=== PATIENT | male | born 1965 | race Hispanic/Latino ===

== ENCOUNTER 2016-12-10 01:17 | Inpatient (IN) | payer MEDICAID ==
[2016-12-10 01:17] VITALS: BMI 24.2
--- NOTE | 2016-12-10 01:44 | C.PDOC ---
History Of Present Illness Patient presents to the ED complaining of depression. Patient states he has a plan to jump off of the roof. He has been depressed since his mother about 6 months ago. Patient denies homicidal ideation or any other complaints at this time. Time Seen by Provider: 12/10/16 01:44 Chief Complaint (Nursing): Psychiatric Evaluation History Per: Patient History/Exam Limitations: no limitations Onset/Duration Of Symptoms: Other (6 months) Current Symptoms Are (Timing): Still Present Suicide/Self Injury Attempted (Context): None Modifying Factor(s): None Severity: None Pain Scale Rating Of: 0 Associated Symptoms: Depression, Suicidal Thoughts Recent travel outside of the [place]: No Additional History Per: Patient Past Medical History Reviewed: Historical Data, Nursing Documentation, Vital Signs Vital Signs: Last Vital Signs Temp 98.3 F 12/10/16 01:30 Pulse 75 12/10/16 01:30 Resp 20 12/10/16 01:30 BP 173/146 H 12/10/16 01:30 Pulse Ox 100 12/10/16 02:06 - Medical History PMH: Depression, Gastritis, HTN Surgical History: Hernia Repair - [facility] Procedures DETOXIFICATION SERVICES FOR SUBSTANCE ABUSE TREATMENT (04/11/16) GROUP PSYCHOTHERAPY (04/11/16) INDIVIDUAL PSYCHOTHERAPY, SUPPORTIVE (04/11/16) MEDICATION MANAGEMENT (04/11/16) Family History: States: Unknown Family Hx - Social History Hx Tobacco Use: Yes Hx Alcohol Use: No Hx Substance Use: Yes - Immunization History Hx Tetanus Toxoid Vaccination: No Hx Influenza Vaccination: Yes Hx Pneumococcal Vaccination: Yes Review Of Systems Constitutional: Negative for: Fever ENT: Negative for: Throat Pain Cardiovascular: Negative for: Chest Pain Respiratory: Negative for: Shortness of Breath Gastrointestinal: Negative for: Nausea, Vomiting Genitourinary: Negative for: Dysuria Musculoskeletal: Negative for: Back Pain Skin: Negative for: Rash, Lesions Neurological: Negative for: Weakness Psych: Positive for: Depression, Suicidal ideation. Negative for: Other ( homicidal ideation) Physical Exam - Physical Exam Appears: Non-toxic Skin: Warm, Dry Head: Atraumatic, Normacephalic Neck: Supple Chest: Symmetrical Cardiovascular: Rhythm Regular Respiratory: No Rales, No Rhonchi, No Wheezing Extremity: Bilateral: Atraumatic Neurological/Psych: Oriented x3 ED Course And Treatment - Laboratory Results Result Diagrams: 12/10/16 01:48 06/08/17 01:48 O2 Sat by Pulse Oximetry: 100 (room air) Pulse Ox Interpretation: Normal Progress Note: Plan: Labs, Crisis Evaluation Disposition Discussed With DrKortney: Bryanna Santamaria Comment: accepted the pt on his service and took over the care at 3:06 AM Doctor Will See Patient In The: Hospital Counseled Patient/Family Regarding: Studies Performed, Diagnosis - Disposition Disposition: HOSPITALIZED Disposition Time: 01:44 Condition: FAIR - Clinical Impression Clinical Impression: Major depression, Substance abuse - Scribe Statement The provider has reviewed the documentation as recorded by the Scribe Rocio Mckoy Provider Attestation: All medical record entries made by the Scribe were at my direction and personally dictated by me. I have reviewed the chart and agree that the record accurately reflects my personal performance of the history, physical exam, medical decision making, and the department course for this patient. I have also personally directed, reviewed, and agree with the discharge instructions and disposition.
[2016-12-10 01:51] LABS: BASO # 0.1 K/uL (0.0-0.2); BASO % 0.6 % (0.0-2.0); EOS # 0.1 K/uL (0.0-0.7); EOS % 0.7 % (0.0-4.0); HEMATOCRIT 42.4 % (35.0-51.0); LYMPH # 2.1 K/uL (1.0-4.3); LYMPH % 20.8 % (20.0-40.0); MEAN CELL VOLUME 89.4 fL (80.0-94.0); MEAN CORPUSCULAR HEMOGLOBIN 30.8 pg (27.0-31.0); MEAN CORPUSCULAR HGB CONC 34.4 g/dL (33.0-37.0); MEAN PLATELET VOLUME 8.6 fL (7.2-11.7); MONO # 0.7 K/uL (0.0-0.8); MONO % 6.8 % (0.0-10.0); NRBC % 0.1 % (0.0-2.0); RED CELL DISTRIBUTION WIDTH 13.5 % (11.5-14.5); WHITE BLOOD COUNT 10.1 K/uL (4.8-10.8)
[2016-12-10 02:08] LABS: CHLORIDE 100 mmol/L (98-107); SODIUM 136 mmol/L (132-148)
[2016-12-10 02:09] LABS: POTASSIUM 3.8 mmol/L (3.6-5.2)
[2016-12-10 02:11] LABS: ALB/GLOB RATIO 1.5 (1.0-2.1); ALKALINE PHOSPHATASE 127 U/L (38-126); ALT/SGPT 50 U/L (21-72); AST/SGOT 26 U/L (17-59); BILIRUBIN,TOTAL 0.9 mg/dL (0.2-1.3); BLOOD UREA NITROGEN 19 mg/dL (9-20); CARBON DIOXIDE 23 mmol/L (22-30); GFR AFRICAN-AMERICAN > 60; GLUCOSE,RANDOM 85 mg/dL (75-110); TOTAL PROTEIN 7.4 g/dL (6.3-8.3)
[2016-12-10 02:12] LABS: ALCOHOL SERUM < 10 mg/dl (0-10); CALCIUM 9.2 mg/dl (8.6-10.4)
[2016-12-10 02:53] LABS: RBC URINE 1 /hpf (0-3); URINE BILIRUBIN NEGATIVE (NEGATIVE); URINE BLOOD NEGATIVE (NEGATIVE); URINE COLOR Yellow (YELLOW); URINE GLUCOSE (UA) NORMAL (Normal); URINE KETONE NEGATIVE (NEGATIVE); URINE LEUKOCYTE ESTERASE NEG Leu/uL (Negative); URINE PROTEIN NEGATIVE (NEGATIVE); URINE UROBILINOGEN NORMAL mg/dL (0.2-1.0); WBC URINE 2 /hpf (0-5)
[2016-12-10] MEDS ORDERED: Aluminum Hydroxide/Magnesium Hydroxide Susp (30 mL) ONE (03:04)
[2016-12-10] MEDS ORDERED: Aluminum Hydroxide/Magnesium Hydroxide Susp (30 mL) PO ONE (03:09)
[2016-12-10] MEDS ORDERED: guaiFENesin DM 200 mg-20 mg/10 ml UD PO PRN (08:35)
--- NOTE | 2016-12-10 10:31 | PCM.PSYCH ---
Initial Psychiatric Evaluation - Initial Psychiatric Evaluation Type of Admission: Voluntary Legal Status: Capacity Chief Complaint (in patient's own words): "I m feeling depressed and suicidal." History of Present Illness and Precipitating Events: Patient seen and evaluated, chart reviewed and discussed with the nurse. The patient is a 51yo male, who lives with his sister, came to the ED with depressed mood and suicidal ideation with a plan to jump off the roof of the building. Patient states that he was admitted at [facility] about 6 months ago for major depression. He was fine upon discharge and was following up 3 times a month with his psychiatrist Dr. Wallace at [facility]. He had been compliant with the medications Venlafaxine and Xanax which she prescribed him. He states that he last saw his psychiatrist last month but since then he started becoming increasingly depressed and yesterday contemplated suicide by going to the roof of a 20-story building but decided not to jump. He says that these feelings have been building up since his mother of cancer. He says that his younger and older brother also of cancer, his cousin was killed by a drunk cdl flatbed truck driver, and his father of a heart attack. He states that all of these deaths occurred in close proximity and he has been on a downward spiral ever since. He states, auditory hallucinations, that he hears his mothers voice calling him constantly but denies any visual hallucinations. He reports persecutory delusions that he cannot sleep and he feels like people are watching him. He reports feelings of hopelessness and helplessness and worthlessness. He reports poor sleep and poor appetite. He says that he smokes 10 bags of heroin a day and he last used heroin this past Wednesday. He started snorting heroin about 5 years ago and also smokes 3 joints of marijuana a day. He denies the use of cocaine and alcohol. He reports withdrawal symptoms including anxiety, abdominal cramps, nausea, joint pains, hot and cold sweats and headaches. The patient appears to have a depressed mood, is suspicious and slightly unkempt , and has a constricted affect. His speech is appropriate and organized. He appears to be social and interacts with the other patients. PMH HTN PSx H H/o 2 hernia repairs, h/o Shoulder surgery for pinched nerve Current Medications: Active Medications Generic Name Dose Route Start Last Admin Trade Name Freq PRN Reason Stop Dose Admin Clonidine HCl 0.1 mg 12/10/16 05:01 12/10/16 05:40 Catapres PO 0.1 mg Q6 PRN Administration Diastolic blood pressure Diphenhydramine HCl 50 mg 12/10/16 08:36 Benadryl PO Q6 PRN Extra Pyramidal Symptoms Guaifenesin/Dextromethorphan 10 ml 12/10/16 08:35 Robitussin Dm PO Q4H PRN Cough and congestion Loperamide HCl 2 mg 12/10/16 05:01 12/10/16 05:40 Imodium PO 2 mg Q6 PRN Administration Diarrhea Methadone HCl 0 mg 12/11/16 10:00 Methadone PO 12/15/16 09:59 .TAPER NOAH Taper Nicotine 1 patch 12/10/16 10:00 12/10/16 09:26 Nicoderm Cq TD 1 patch DAILY NOAH Administration Ondansetron HCl 4 mg 12/10/16 08:35 Zofran Tab PO Q8 PRN Nausea/Vomiting Pseudoephedrine HCl 60 mg 12/10/16 08:35 Sudafed Tab PO QID PRN Nasal/Sinus Congestion Trazodone HCl 50 mg 12/10/16 22:00 Desyrel PO HS NOAH Past Psychiatric History - Past Psychiatric History Previous Treatment History: Inpatient Pertinent Medical Hx (Current Medical&Sleep Prob, Allergies): Allergies Allergy/AdvReac Type Severity Reaction Status Date / Time No Known Allergies Allergy Verified 12/10/16 01:34 Gabapentin [Neurontin] 300 mg PO TID #90 cap 04/16/16 Metoprolol Tartrate [Lopressor] 100 mg PO BID #60 tab 04/16/16 hydroCHLOROthiazide [Microzide] 50 mg PO DAILY #30 tab 04/16/16 Review of Systems - Review of Systems All systems: reviewed and no additional remarkable complaints except - Psychiatric Psychiatric: Anxiety, Auditory Hallucinations, Depression, Difficulty Concentrating, Paranoia, Suicidal Ideation. absent: Visual Hallucinations Mental Status Examination - Personal Presentation Personal Presentation: Looks stated age - Affect Affect: Constricted, Depressed - Motor Activity Motor Activity: Calm - Reliability in Providing Information Reliability in Providing Information: Good - Speech Speech: Organized - Mood Mood: Depressed, Anxious - Formal Thought Process Formal Thought Process: Hallucinations, Delusions, Paranoia - Hallucinations/Delusions Hallucinations: Auditory Delusions: Persecution - Obsessions/Compulsions Obsessions: No Compulsions: No - Cognitive Functions Orientation: Person, Place, Situation, Time Sensorium: Alert Attention/Concentration: Attentive Abstract Thinking: Bryan Estimate of Intelligence: Below average Judgement: Imparied, as evidence by: Poor judgement, Imparied, as evidence by: Lack of insight into illness - Risk Risk: Suicidal, Withdrawal, Diminished functioning - Strength & Assets Inventory Strength & Assets Inventory: Family support (sister) DSM 5 DX - DSM 5 DSM 5 Diagnosis: Major depressive disorder recurrent severe with psychotic features Opioid Use Disorder-severe Opioid Withdrawal - Recommended/Plan of Treatment Treatment Recommendations and Plan of Treatment: Major depressive disorder recurrent severe with psychotic features CBT Psychoeducation Supportive therapy, group therapy, individual therapy Paxil 10 mg by mouth daily Neurontin 100 mg by mouth 3 times a day Trazodone 50 mg by mouth daily at bedtime Opioid use disorder severe CBT Psychoeducation Supportive therapy, individual therapy Use [place] for abstinence Opioid withdrawal CBT Psychoeducation Supportive therapy, individual therapy Clonidine when necessary Methadone taper Cannabis use disorder mild Monitor signs and symptoms Use [place] for abstinence HTN Monitor signs and symptoms H/o 2 hernia repairs, h/o Shoulder surgery for pinched nerve Monitor signs and symptoms - Smoking Cessation Smoking Cessation Initiated: No
--- NOTE | 2016-12-10 20:41 | CP.PCM.CON ---
<Danielle Osborn - Last Filed: 12/11/16 05:07> History of Present Illness - History of Present Illness History of Present Illness: Medicine Consult Note Reason for consult: L ear pain HPI: 51 year old white male PMHx of COPD, HTN, arrythmia presented to ER with depressed mood and suicidal ideation. Medicine was consulted regarding a left earache that has been intermittent for 1 year. Patient reports the pain became worse and constant in the last 3 days. He also reported that the day before he found some bugs in his ear. He described the pain as sharp 10/10 and radiating to his jaw. He also reported an associated headache and some pain with swallowing although he denied any clicks or the feeling of his jaw being stuck. He reported he has not been sick recently and denied any sick contacts. He reported not taking anything for the pain to make it better and denied any identifiable exacerbating factors. Patient denied fever, chills, headache, change in vision/hearing, chest pain, palpitations, SOB, cough, abdominal pain, nausea, vomiting, bowel/bladder complains, pain/swelling in his legs bilaterally. PMD: None PMHx: COPD, HTN, arrythmia, depression PSurgHx: hernia repair x 2 and shoulder surgery Family Hx: mother and two brothers of lung cancer SocHx: 1ppd for 40 years and uses heroin and marijuana ROS: denied fever, chills, headache, change in vision/hearing, chest pain, palpitations, SOB, cough, abdominal pain, nausea, vomiting, bowel/bladder complains, pain/swelling in his legs bilaterally. admitted headache, left ear, pain, jaw pain, sore throat Review of Systems - Constitutional Constitutional: As Per HPI. absent: Chills, Fever - EENT Eyes: As Per HPI. absent: Change in Vision Ears: As Per HPI, Ear Pain (left). absent: Decreased Hearing, Ear Discharge, Tinnitus, Abnormal Hearing, Dizziness Nose/Mouth/Throat: As Per HPI, Sore Throat. absent: Mouth Lesions Additional comments: jaw pain - Cardiovascular Cardiovascular: As Per HPI. absent: Chest Pain, Dyspnea, Edema - Respiratory Respiratory: As Per HPI. absent: Cough, Dyspnea on Exertion, Wheezing - Gastrointestinal Gastrointestinal: As Per HPI. absent: Abdominal Pain, Cramping, Diarrhea, Nausea, Vomiting - Musculoskeletal Musculoskeletal: As Per HPI. absent: Back Pain, Numbness, Tingling - Integumentary Integumentary: As Per HPI. absent: Rash - Neurological Neurological: As Per HPI. absent: Dizziness, Tingling, Weakness - Psychiatric Psychiatric: As Per HPI, Anxiety, Depression, Suicidal Ideation. absent: Homicidal Ideation - Endocrine Endocrine: As Per HPI. absent: Polydipsia, Polyphagia, Polyuria - Hematologic/Lymphatic Hematologic: As Per HPI. absent: Easy Bleeding, Easy Bruising, Lymphadenopathy Past Patient History - Infectious Disease Hx of Infectious Diseases: None - Past Medical History & Family History Past Medical History?: Yes - Past Social History Smoking Status: Heavy Smoker > 10 Cigarettes Daily - CARDIAC Hx Hypertension: Yes - PULMONARY Hx Respiratory Disorders: No Hx Tuberculosis: No - NEUROLOGICAL HX Cerebrovascular Accident: No Hx Seizures: No - HEENT Hx HEENT Problems: No - RENAL Hx Chronic Kidney Disease: No - ENDOCRINE/METABOLIC Hx Endocrine Disorders: No - HEMATOLOGICAL/ONCOLOGICAL Hx Blood Disorders: No Hx Cancer: No Hx Human Immunodeficiency Virus (HIV): No - INTEGUMENTARY Hx Dermatological Problems: No - MUSCULOSKELETAL/RHEUMATOLOGICAL Hx Musculoskeletal Disorders: No Hx Falls: No Other/Comment: pinched nerve left side of neck - GASTROINTESTINAL Hx Gastritis: Yes - GENITOURINARY/GYNECOLOGICAL Hx Genitourinary Disorders: No Hx Sexually Transmitted Disorders: No - PSYCHIATRIC Hx Substance Use: Yes - SURGICAL HISTORY Hx Surgeries: Yes (recent hernia surgery, hydrocele 10/16) Hx Herniorrhaphy: Yes Other/Comment: shoulder surgery - ANESTHESIA Hx Anesthesia: Yes Hx Anesthesia Reactions: Yes Hx Malignant Hyperthermia: No Meds Allergies/Adverse Reactions: Allergies Allergy/AdvReac Type Severity Reaction Status Date / Time No Known Allergies Allergy Verified 12/10/16 01:34 - Medications Medications: Current Medications Clonidine HCl (Catapres) 0.1 mg PO Q6 PRN PRN Reason: Diastolic blood pressure Last Admin: 12/10/16 05:40 Dose: 0.1 mg Diphenhydramine HCl (Benadryl) 50 mg PO Q6 PRN PRN Reason: Extra Pyramidal Symptoms Gabapentin (Neurontin) 100 mg PO TID NOAH Last Admin: 12/10/16 17:27 Dose: 100 mg Guaifenesin/Dextromethorphan (Robitussin Dm) 10 ml PO Q4H PRN PRN Reason: Cough and congestion Loperamide HCl (Imodium) 2 mg PO Q6 PRN PRN Reason: Diarrhea Last Admin: 12/10/16 05:40 Dose: 2 mg Methadone HCl (Methadone) 0 mg PO .TAPER NOAH PRN Reason: Taper Stop: 12/15/16 09:59 Nicotine (Nicoderm Cq) 1 patch TD DAILY [facility] Last Admin: 12/10/16 09:26 Dose: 1 patch Ondansetron HCl (Zofran Tab) 4 mg PO Q8 PRN PRN Reason: Nausea/Vomiting Paroxetine HCl (Paxil) 10 mg PO DAILY [facility] Pseudoephedrine HCl (Sudafed Tab) 60 mg PO QID PRN PRN Reason: Nasal/Sinus Congestion Trazodone HCl (Desyrel) 50 mg PO HS [facility] Physical Exam - Constitutional Appears: Well, Toxic - Head Exam Head Exam: ATRAUMATIC, NORMAL INSPECTION, NORMOCEPHALIC - Eye Exam Eye Exam: EOMI, Normal appearance, PERRL. absent: Conjunctival injection, Scleral icterus Pupil Exam: NORMAL ACCOMODATION - ENT Exam ENT Exam: Mucous Membranes Moist - Neck Exam Neck exam: Positive for: Full Rom, Normal Inspection. Negative for: Lymphadenopathy, Tenderness - Respiratory Exam Respiratory Exam: Clear to Auscultation Bilateral, NORMAL BREATHING PATTERN. absent: Accessory Muscle Use, Rales, Rhonchi, Wheezes, Respiratory Distress - Cardiovascular Exam Cardiovascular Exam: REGULAR RHYTHM, RRR, +S1, +S2 - GI/Abdominal Exam GI & Abdominal Exam: Normal Bowel Sounds, Soft. absent: Firm, Guarding, Hernia , Rigid, Tenderness - Rectal Exam Rectal Exam: Deferred - Extremities Exam Extremities exam: Positive for: normal capillary refill, normal inspection, pedal pulses present. Negative for: pedal edema, tenderness - Back Exam Back exam: NORMAL INSPECTION. absent: rash noted, tenderness - Neurological Exam Neurological exam: Alert, Oriented x3 - Psychiatric Exam Psychiatric exam: Anxious, Depressed - Skin Skin Exam: Dry, Intact, Normal Color, Warm Results - Vital Signs Recent Vital Signs: Last Vital Signs Temp 97.8 F 12/10/16 06:53 Pulse 103 H 12/10/16 16:13 Resp 18 12/10/16 06:53 BP 132/80 12/10/16 16:13 Pulse Ox 97 12/10/16 04:06 - Labs Result Diagrams: 12/10/16 01:48 12/10/16 01:48 Assessment & Plan - Assessment and Plan (Free Text) Assessment: 51 year old white male PMHx of COPD, HTN, arrythmia presented to ER with depressed mood and suicidal ideation. Medicine was consulted regarding a left earache that has been intermittent for 1 year. Plan: Left ear pain -Ofloxacin otic 0.3% BID AU -Motrin 400mg po q6 prn for pain -f/u AM labs Depression and Suicidal ideations -Managed as per psych Hx of HTN -continued home medications: Metoprolol tartate 100mg po bid HCTZ 50mg po daily -f/u lipid panel and HgbA1c -Monitor BP Hx of COPD -no acute complaints -Duoneb 3ml inh q6 prn SOB PPX -Pepcid 20mg po daily -Heparin 5000U SC Q12 -No need for SCDs as patient ambulates around [place] -Heart healthy diet Plan discussed with Dr. Kinjal Osborn PGY1 <Hitesh Layton - Last Filed: 12/11/16 05:55> Meds - Medications Medications: Current Medications Albuterol/Ipratropium (Duoneb 3 Mg/0.5 Mg (3 Ml) Ud) 3 ml INH RQ6 PRN PRN Reason: Shortness of Breath Clonidine HCl (Catapres) 0.1 mg PO Q6 PRN PRN Reason: Diastolic blood pressure Last Admin: 12/10/16 05:40 Dose: 0.1 mg Diphenhydramine HCl (Benadryl) 50 mg PO Q6 PRN PRN Reason: Extra Pyramidal Symptoms Famotidine (Pepcid) 20 mg PO BID NOAH Gabapentin (Neurontin) 100 mg PO TID NOAH Last Admin: 12/10/16 17:27 Dose: 100 mg Guaifenesin/Dextromethorphan (Robitussin Dm) 10 ml PO Q4H PRN PRN Reason: Cough and congestion Heparin Sodium (Porcine) (Heparin) 5,000 units SC Q12 NOAH Hydrochlorothiazide (Microzide) 50 mg PO DAILY NOAH Ibuprofen (Motrin Tab) 400 mg PO Q6H PRN PRN Reason: Pain, moderate (4-7) Loperamide HCl (Imodium) 2 mg PO Q6 PRN PRN Reason: Diarrhea Last Admin: 12/10/16 05:40 Dose: 2 mg Methadone HCl (Methadone) 0 mg PO .TAPER NOAH PRN Reason: Taper Stop: 12/15/16 09:59 Metoprolol Tartrate (Lopressor) 100 mg PO BID [facility] Nicotine (Nicoderm Cq) 1 patch TD DAILY [facility] Last Admin: 12/10/16 09:26 Dose: 1 patch Ofloxacin (Floxin 0.3% Otic Soln) 0 ml AU BID NOAH Ondansetron HCl (Zofran Tab) 4 mg PO Q8 PRN PRN Reason: Nausea/Vomiting Paroxetine HCl (Paxil) 10 mg PO DAILY NOAH Pseudoephedrine HCl (Sudafed Tab) 60 mg PO QID PRN PRN Reason: Nasal/Sinus Congestion Trazodone HCl (Desyrel) 50 mg PO HS [facility] Last Admin: 12/10/16 22:08 Dose: Not Given Results - Vital Signs Recent Vital Signs: Last Vital Signs Temp 97.8 F 12/10/16 06:53 Pulse 103 H 12/10/16 16:13 Resp 18 12/10/16 06:53 BP 132/80 12/10/16 16:13 Pulse Ox 97 12/10/16 04:06 - Labs Result Diagrams: 12/10/16 01:48 12/10/16 01:48 Assessment & Plan - Date & Time Date: 12/11/16 (I have seen and examined the patient. I agree with the findings and plan of care as documented by Dr. Osborn. Patient with left ear pain. Oflaxin ear drops. Motrin prn. Also with history of hypertension. Continue home meds. Monitor for acute changes.) Time: 05:54 Attending/Attestation - Attestation I have personally seen and examined this patient.: Yes I have fully participated in the care of the patient.: Yes I have reviewed all pertinent clinical information: Yes
[2016-12-11] MEDS ORDERED: Albuterol-Ipratrop 3 mg / 0.5 (3 ml) UD INH PRN (05:11)
--- NOTE | 2016-12-11 07:25 | CP.PCM.PN ---
Subjective - Date & Time of Evaluation Date of Evaluation: 12/11/16 Time of Evaluation: 08:55 - Subjective Subjective: PGY 1 Medicine Note- Dr. Mcclain's service Patient seen and examined in no acute distress. Patient states that his left ear hurts. He states that he likely has so much wax buildup that may have contributed to this. Patient admits to not having much of an appetite. Patient denies subjective fevers or chills, nausea, headaches, dizziness, lightheadedness at this time. Objective - Vital Signs/Intake and Output Vital Signs (last 24 hours): Temp Pulse Resp BP Pulse Ox 97.5 F L 94 H 20 120/87 97 12/11/16 07:09 12/11/16 07:09 12/11/16 07:09 12/11/16 07:09 12/10/16 04:06 - Medications Medications: Current Medications Albuterol/Ipratropium (Duoneb 3 Mg/0.5 Mg (3 Ml) Ud) 3 ml INH RQ6 PRN PRN Reason: Shortness of Breath Clonidine HCl (Catapres) 0.1 mg PO Q6 PRN PRN Reason: Diastolic blood pressure Last Admin: 12/10/16 05:40 Dose: 0.1 mg Diphenhydramine HCl (Benadryl) 50 mg PO Q6 PRN PRN Reason: Extra Pyramidal Symptoms Famotidine (Pepcid) 20 mg PO BID [facility] Gabapentin (Neurontin) 100 mg PO TID [facility] Last Admin: 12/10/16 17:27 Dose: 100 mg Guaifenesin/Dextromethorphan (Robitussin Dm) 10 ml PO Q4H PRN PRN Reason: Cough and congestion Hydrochlorothiazide (Microzide) 50 mg PO DAILY [facility] Ibuprofen (Motrin Tab) 400 mg PO Q6H PRN PRN Reason: Pain, moderate (4-7) Loperamide HCl (Imodium) 2 mg PO Q6 PRN PRN Reason: Diarrhea Last Admin: 12/10/16 05:40 Dose: 2 mg Methadone HCl (Methadone) 0 mg PO .TAPER NOAH PRN Reason: Taper Stop: 12/15/16 09:59 Metoprolol Tartrate (Lopressor) 100 mg PO BID [facility] Nicotine (Nicoderm Cq) 1 patch TD DAILY [facility] Last Admin: 12/10/16 09:26 Dose: 1 patch Ofloxacin (Floxin 0.3% Otic Soln) 0 ml AU BID [facility] Ondansetron HCl (Zofran Tab) 4 mg PO Q8 PRN PRN Reason: Nausea/Vomiting Paroxetine HCl (Paxil) 10 mg PO DAILY [facility] Pseudoephedrine HCl (Sudafed Tab) 60 mg PO QID PRN PRN Reason: Nasal/Sinus Congestion Trazodone HCl (Desyrel) 50 mg PO HS [facility] Last Admin: 12/10/16 22:08 Dose: Not Given - Constitutional Appears: Non-toxic, No Acute Distress - Head Exam Head Exam: ATRAUMATIC, NORMAL INSPECTION, NORMOCEPHALIC - Eye Exam Eye Exam: EOMI, Normal appearance, PERRL Pupil Exam: NORMAL ACCOMODATION, PERRL - ENT Exam ENT Exam: Mucous Membranes Moist - Neck Exam Neck Exam: Full ROM - Respiratory Exam Respiratory Exam: NORMAL BREATHING PATTERN. absent: Wheezes - Cardiovascular Exam Cardiovascular Exam: +S1, +S2 - GI/Abdominal Exam GI & Abdominal Exam: Soft, Normal Bowel Sounds - Extremities Exam Extremities Exam: Full ROM, Normal Capillary Refill - Back Exam Back Exam: Full ROM - Neurological Exam Neurological Exam: Alert, Awake, Normal Gait, Oriented x3 - Psychiatric Exam Psychiatric exam: Normal Affect, Normal Mood - Skin Skin Exam: Normal Color, Warm Assessment and Plan - Assessment and Plan (Free Text) Assessment: Left ear pain -Ofloxacin otic 0.3% BID AU -Motrin 400mg po q6 prn for pain -f/u AM labs Depression and Suicidal ideations -Managed as per psych Hx of HTN -continued home medications: Metoprolol tartate 100mg po bid HCTZ 50mg po daily -Lipid panel ( LDL elevated, HDL decreased) and HgbA1c 5.1 -Monitor BP Hx of COPD -no acute complaints -Duoneb 3ml inh q6 prn SOB -Smoking cessation encouraged PPX -Pepcid 20mg po daily -Ambulates -Heart healthy diet Patient is medically stable at this time with recommendations given. Medicine Team signing off. Please re-consult if necessary.
[2016-12-11 08:32] LABS: BASO # 0.1 K/uL (0.0-0.2); BASO % 0.9 % (0.0-2.0); EOS # 0.1 K/uL (0.0-0.7); EOS % 1.5 % (0.0-4.0); HEMATOCRIT 43.9 % (35.0-51.0); LYMPH # 2.1 K/uL (1.0-4.3); LYMPH % 24.9 % (20.0-40.0); MEAN CELL VOLUME 90.5 fL (80.0-94.0); MEAN CORPUSCULAR HEMOGLOBIN 30.9 pg (27.0-31.0); MEAN CORPUSCULAR HGB CONC 34.2 g/dL (33.0-37.0); MEAN PLATELET VOLUME 8.9 fL (7.2-11.7); MONO # 0.6 K/uL (0.0-0.8); MONO % 6.7 % (0.0-10.0); RED CELL DISTRIBUTION WIDTH 13.9 % (11.5-14.5); WHITE BLOOD COUNT 8.6 K/uL (4.8-10.8)
[2016-12-11 08:42] LABS: CHLORIDE 100 mmol/L (98-107)
[2016-12-11 08:43] LABS: POTASSIUM 4.5 mmol/L (3.6-5.2); SODIUM 137 mmol/L (132-148)
[2016-12-11 08:45] LABS: ALB/GLOB RATIO 1.6 (1.0-2.1); ALKALINE PHOSPHATASE 116 U/L (38-126); AST/SGOT 24 U/L (17-59); BILIRUBIN,TOTAL 0.8 mg/dL (0.2-1.3); BLOOD UREA NITROGEN 19 mg/dL (9-20); CARBON DIOXIDE 24 mmol/L (22-30); GFR AFRICAN-AMERICAN > 60; GLUCOSE,RANDOM 90 mg/dL (75-110); PHOSPHOROUS 2.9 mg/dL (2.5-4.5); TOTAL PROTEIN 7.6 g/dL (6.3-8.3)
[2016-12-11 08:46] LABS: ALT/SGPT 41 U/L (21-72); CALCIUM 9.1 mg/dl (8.6-10.4); MAGNESIUM 1.8 mg/dL (1.6-2.3)
[2016-12-11 10:20] LABS: CHOLESTEROL 169 mg/dL (0-199)
[2016-12-11] MEDS: Ofloxacin 0.3% Otic Soln AU SCH ×2 (10:41→17:34)
--- NOTE | 2016-12-11 11:42 | PCM.PYCHPN ---
Psychiatric Progress Note - Psychiatric Progress Note Patient seen today, length of contact: 16 min Patient Chief Complaint: "I m feeling depressed and suicidal." Problems Identified/Issues Discussed: Patient seen and evaluated, chart reviewed and discussed with the nurse. As per the staff, patient still appears isolated, depressed and withdrawn. Patient still reports depressed mood and reports at times feelings of hopelessness or helplessness. He reports withdrawal symptoms including abdominal cramps, back pain, anxiety and sweating. He reports somewhat improvement in his paranoia. He is taking medications and denies any side effects. Patient was seen by the medical because of the year pain. Supportive therapy and psychoeducation were given. Medication Change: Yes (methadone taper) Medical Record Reviewed: Yes Mental Status Examination - Cognitive Function Orientation: Person, Place, Situation, Time Memory: Intact Attention: WNL Concentration: Poor Association: WNL Fund of Knowledge: Poor - Mood Mood: Depressed, Anxious - Affect Affect: Constricted, Depressed - Formal Thought Process Formal Thought Process: Hallucinations, Delusions, Paranoia - Suicidal Ideation Suicidal Ideation: No - Homicidal Ideation Homicidal Ideation: No Goal/Treatment Plan - Goal/Treatment Plan Need for Continued Stay: Discharge may exacerbated symptoms, Severe functional impairment Progress Toward Problem(s) and Goals/Treatment Plan: Major depressive disorder recurrent severe with psychotic features CBT Psychoeducation Supportive therapy, group therapy, individual therapy Paxil 10 mg by mouth daily Neurontin 100 mg by mouth 3 times a day Trazodone 50 mg by mouth daily at bedtime Opioid use disorder severe CBT Psychoeducation Supportive therapy, individual therapy Use [place] for abstinence Opioid withdrawal CBT Psychoeducation Supportive therapy, individual therapy Clonidine when necessary Methadone taper Cannabis use disorder mild Monitor signs and symptoms Use [place] for abstinence HTN Monitor signs and symptoms H/o 2 hernia repairs, h/o Shoulder surgery for pinched nerve Monitor signs and symptoms - Smoking Cessation Smoking Cessation Initiated: No
[2016-12-12 07:19] VITALS: O2SAT 99
--- NOTE | 2016-12-12 09:52 | PCM.PYCHPN ---
Psychiatric Progress Note - Psychiatric Progress Note Patient seen today, length of contact: 16 min Patient Chief Complaint: "I m feeling depressed and suicidal." Problems Identified/Issues Discussed: Patient seen and evaluated, chart reviewed and discussed with the nurse. As per the staff, patient still appears isolated, depressed and withdrawn. Patient still reports depressed mood and reports at times feelings of hopelessness or helplessness. He reports withdrawal symptoms including abdominal cramps, back pain, anxiety and sweating. He reports somewhat improvement in his paranoia. He is taking medications and denies any side effects. Patient was seen by the medical because of the year pain. Supportive therapy and psychoeducation were given. Medication Change: Yes (methadone taper) Medical Record Reviewed: Yes Mental Status Examination - Cognitive Function Orientation: Person, Place, Situation, Time Memory: Intact Attention: WNL Concentration: Poor Association: WNL Fund of Knowledge: Poor - Mood Mood: Depressed, Anxious - Affect Affect: Constricted, Depressed - Formal Thought Process Formal Thought Process: Hallucinations, Delusions, Paranoia - Suicidal Ideation Suicidal Ideation: No - Homicidal Ideation Homicidal Ideation: No Goal/Treatment Plan - Goal/Treatment Plan Need for Continued Stay: Discharge may exacerbated symptoms, Severe functional impairment Progress Toward Problem(s) and Goals/Treatment Plan: Major depressive disorder recurrent severe with psychotic features CBT Psychoeducation Supportive therapy, group therapy, individual therapy Paxil 10 mg by mouth daily Neurontin 100 mg by mouth 3 times a day Trazodone 50 mg by mouth daily at bedtime Opioid use disorder severe CBT Psychoeducation Supportive therapy, individual therapy Use [place] for abstinence Opioid withdrawal CBT Psychoeducation Supportive therapy, individual therapy Clonidine when necessary Methadone taper Cannabis use disorder mild Monitor signs and symptoms Use [place] for abstinence HTN Monitor signs and symptoms H/o 2 hernia repairs, h/o Shoulder surgery for pinched nerve Monitor signs and symptoms
[2016-12-12] MEDS: Ofloxacin 0.3% Otic Soln AU SCH ×3 (11:20→22:31)
[2016-12-13] MEDS: Ofloxacin 0.3% Otic Soln AU SCH ×2 (09:37→17:35)
--- NOTE | 2016-12-13 12:26 | PCM.PYCHPN ---
Psychiatric Progress Note - Psychiatric Progress Note Patient seen today, length of contact: 16 min Patient Chief Complaint: "I m feeling depressed and suicidal." Problems Identified/Issues Discussed: Patient seen and evaluated, chart reviewed and discussed with the nurse. As per the staff, patient still appears isolated, depressed and withdrawn. Patient still reports depressed mood and reports at times feelings of hopelessness or helplessness. He reports withdrawal symptoms including abdominal cramps, back pain, anxiety and sweating. He reports somewhat improvement in his paranoia. He is taking medications and denies any side effects. Patient was seen by the medical because of the year pain. Supportive therapy and psychoeducation were given. Medication Change: Yes (methadone taper) Medical Record Reviewed: Yes Mental Status Examination - Cognitive Function Orientation: Person, Place, Situation, Time Memory: Intact Attention: WNL Concentration: Poor Association: WNL Fund of Knowledge: Poor - Mood Mood: Depressed, Anxious - Affect Affect: Constricted, Depressed - Formal Thought Process Formal Thought Process: Hallucinations, Delusions, Paranoia - Suicidal Ideation Suicidal Ideation: No - Homicidal Ideation Homicidal Ideation: No Goal/Treatment Plan - Goal/Treatment Plan Need for Continued Stay: Discharge may exacerbated symptoms, Severe functional impairment Progress Toward Problem(s) and Goals/Treatment Plan: Major depressive disorder recurrent severe with psychotic features CBT Psychoeducation Supportive therapy, group therapy, individual therapy Paxil 10 mg by mouth daily Neurontin 100 mg by mouth 3 times a day Trazodone 50 mg by mouth daily at bedtime Opioid use disorder severe CBT Psychoeducation Supportive therapy, individual therapy Use [place] for abstinence Opioid withdrawal CBT Psychoeducation Supportive therapy, individual therapy Clonidine when necessary Methadone taper Cannabis use disorder mild Monitor signs and symptoms Use [place] for abstinence HTN Monitor signs and symptoms H/o 2 hernia repairs, h/o Shoulder surgery for pinched nerve Monitor signs and symptoms
[2016-12-14] MEDS: Ofloxacin 0.3% Otic Soln AU SCH ×2 (10:27→17:16)
--- NOTE | 2016-12-14 12:54 | PCM.PYCHPN ---
Psychiatric Progress Note - Psychiatric Progress Note Patient seen today, length of contact: 16 min Patient Chief Complaint: "I m feeling depressed and suicidal." Problems Identified/Issues Discussed: Patient seen and evaluated, chart reviewed and discussed with the nurse. As per the staff, patient still appears isolated, depressed and withdrawn. Patient still reports depressed mood and reports at times feelings of hopelessness or helplessness. He reports withdrawal symptoms including abdominal cramps, back pain, anxiety and sweating. He reports somewhat improvement in his paranoia. He is taking medications and denies any side effects. Patient was seen by the medical because of the year pain. Supportive therapy and psychoeducation were given. Medication Change: Yes (methadone taper) Medical Record Reviewed: Yes Mental Status Examination - Cognitive Function Orientation: Person, Place, Situation, Time Memory: Intact Attention: WNL Concentration: Poor Association: WNL Fund of Knowledge: Poor - Mood Mood: Depressed, Anxious - Affect Affect: Constricted, Depressed - Formal Thought Process Formal Thought Process: Hallucinations, Delusions, Paranoia - Suicidal Ideation Suicidal Ideation: No - Homicidal Ideation Homicidal Ideation: No Goal/Treatment Plan - Goal/Treatment Plan Need for Continued Stay: Discharge may exacerbated symptoms, Severe functional impairment Progress Toward Problem(s) and Goals/Treatment Plan: Major depressive disorder recurrent severe with psychotic features CBT Psychoeducation Supportive therapy, group therapy, individual therapy Paxil 10 mg by mouth daily Neurontin 100 mg by mouth 3 times a day Trazodone 50 mg by mouth daily at bedtime Opioid use disorder severe CBT Psychoeducation Supportive therapy, individual therapy Use [place] for abstinence Opioid withdrawal CBT Psychoeducation Supportive therapy, individual therapy Clonidine when necessary Methadone taper Cannabis use disorder mild Monitor signs and symptoms Use [place] for abstinence HTN Monitor signs and symptoms H/o 2 hernia repairs, h/o Shoulder surgery for pinched nerve Monitor signs and symptoms
[2016-12-15] MEDS: Ofloxacin 0.3% Otic Soln AU SCH ×2 (09:41→18:49)
--- NOTE | 2016-12-15 14:38 | PCM.PYCHPN ---
Psychiatric Progress Note - Psychiatric Progress Note Patient seen today, length of contact: 16 min Patient Chief Complaint: "I m feeling depressed and suicidal." Problems Identified/Issues Discussed: Patient seen and evaluated, chart reviewed and discussed with the nurse. As per the staff, patient still appears isolated, depressed and withdrawn. Patient still reports depressed mood and reports at times feelings of hopelessness or helplessness. He reports withdrawal symptoms including abdominal cramps, back pain, anxiety and sweating. He reports somewhat improvement in his paranoia. He is taking medications and denies any side effects. Patient was seen by the medical because of the year pain. Supportive therapy and psychoeducation were given. Medication Change: Yes (methadone taper, increase paxil) Medical Record Reviewed: Yes Mental Status Examination - Cognitive Function Orientation: Person, Place, Situation, Time Memory: Intact Attention: WNL Concentration: Poor Association: WNL Fund of Knowledge: Poor - Mood Mood: Depressed, Anxious - Affect Affect: Constricted, Depressed - Formal Thought Process Formal Thought Process: Hallucinations, Delusions, Paranoia - Suicidal Ideation Suicidal Ideation: No - Homicidal Ideation Homicidal Ideation: No Goal/Treatment Plan - Goal/Treatment Plan Need for Continued Stay: Discharge may exacerbated symptoms, Severe functional impairment Progress Toward Problem(s) and Goals/Treatment Plan: Major depressive disorder recurrent severe with psychotic features CBT Psychoeducation Supportive therapy, group therapy, individual therapy Paxil 10 mg by mouth daily Neurontin 100 mg by mouth 3 times a day Trazodone 50 mg by mouth daily at bedtime Opioid use disorder severe CBT Psychoeducation Supportive therapy, individual therapy Use [place] for abstinence Opioid withdrawal CBT Psychoeducation Supportive therapy, individual therapy Clonidine when necessary Methadone taper Cannabis use disorder mild Monitor signs and symptoms Use [place] for abstinence HTN Monitor signs and symptoms H/o 2 hernia repairs, h/o Shoulder surgery for pinched nerve Monitor signs and symptoms
[2016-12-16] MEDS: Ofloxacin 0.3% Otic Soln AU SCH ×2 (10:38→21:30)
--- NOTE | 2016-12-16 15:33 | PCM.PYCHPN ---
Psychiatric Progress Note - Psychiatric Progress Note Patient seen today, length of contact: 16 min Patient Chief Complaint: "I m feeling depressed and suicidal." Problems Identified/Issues Discussed: Patient seen and evaluated, chart reviewed and discussed with the nurse. As per the staff, patient still appears isolated, depressed and withdrawn. Patient still reports depressed mood and reports at times feelings of hopelessness or helplessness. He reports withdrawal symptoms including abdominal cramps, back pain, anxiety and sweating. He reports somewhat improvement in his paranoia. He is taking medications and denies any side effects. Patient was seen by the medical because of the year pain. Supportive therapy and psychoeducation were given. Medication Change: Yes (methadone taper, increase paxil) Medical Record Reviewed: Yes Mental Status Examination - Cognitive Function Orientation: Person, Place, Situation, Time Memory: Intact Attention: WNL Concentration: Poor Association: WNL Fund of Knowledge: Poor - Mood Mood: Depressed, Anxious - Affect Affect: Constricted, Depressed - Formal Thought Process Formal Thought Process: Hallucinations, Delusions, Paranoia - Suicidal Ideation Suicidal Ideation: No - Homicidal Ideation Homicidal Ideation: No Goal/Treatment Plan - Goal/Treatment Plan Need for Continued Stay: Discharge may exacerbated symptoms, Severe functional impairment Progress Toward Problem(s) and Goals/Treatment Plan: Major depressive disorder recurrent severe with psychotic features CBT Psychoeducation Supportive therapy, group therapy, individual therapy Paxil 10 mg by mouth daily Neurontin 100 mg by mouth 3 times a day Trazodone 50 mg by mouth daily at bedtime Opioid use disorder severe CBT Psychoeducation Supportive therapy, individual therapy Use [place] for abstinence Opioid withdrawal CBT Psychoeducation Supportive therapy, individual therapy Clonidine when necessary Methadone taper Cannabis use disorder mild Monitor signs and symptoms Use [place] for abstinence HTN Monitor signs and symptoms H/o 2 hernia repairs, h/o Shoulder surgery for pinched nerve Monitor signs and symptoms
[2016-12-17 07:31] VITALS: BP 98/67; PULSE 65; RESP 19; TEMP 97.3
--- NOTE | 2016-12-17 09:41 | PCM.PYCHDC ---
Mental Status Examination - Mental Status Examination Orientation: Person, Place, Situation, Time Memory: Intact Mood: Neutral Affect: Constricted Speech: Soft Attention: WNL Concentration: WNL Association: WNL Fund of Knowledge: WNL Formal Thought Process: No Impairment Description of patient's judgement and insight: good, fair Psychotic Thoughts and Behaviors: denies any AVH Suicidal Ideation: No Current Homicidal Ideation?: No Discharge Summary - Discharge Note Reason for Hospitalization: Patient seen and evaluated, chart reviewed and discussed with the nurse. The patient is a 51yo male, who lives with his sister, came to the ED with depressed mood and suicidal ideation with a plan to jump off the roof of the building. Patient states that he was admitted at [facility] about 6 months ago for major depression. He was fine upon discharge and was following up 3 times a month with his psychiatrist Dr. Wallace at [place] [facility]. He had been compliant with the medications Venlafaxine and Xanax which she prescribed him. He states that he last saw his psychiatrist last month but since then he started becoming increasingly depressed and yesterday contemplated suicide by going to the roof of a 20-story building but decided not to jump. He says that these feelings have been building up since his mother of cancer. He says that his younger and older brother also of cancer, his cousin was killed by a drunk oil transport driver, and his father of a heart attack. He states that all of these deaths occurred in close proximity and he has been on a downward spiral ever since. He states, auditory hallucinations, that he hears his mothers voice calling him constantly but denies any visual hallucinations. He reports persecutory delusions that he cannot sleep and he feels like people are watching him. He reports feelings of hopelessness and helplessness and worthlessness. He reports poor sleep and poor appetite. He says that he smokes 10 bags of heroin a day and he last used heroin this past Wednesday. He started snorting heroin about 5 years ago and also smokes 3 joints of marijuana a day. He denies the use of cocaine and alcohol. He reports withdrawal symptoms including anxiety, abdominal cramps, nausea, joint pains, hot and cold sweats and headaches. The patient appears to have a depressed mood, is suspicious and slightly unkempt , and has a constricted affect. His speech is appropriate and organized. He appears to be social and interacts with the other patients. Consultations:: List each consultation separately and include: 1. Reason for request. 2. Findings. 3. Follow-up Summary of Hospital Course include:: 1. Description of specific treatment plan utilized for patients during their course of treatmen. 2. Summarize the time- course for resolution of acute symptoms and/or regressed behaviors. 3. Describe issues identified and worked on during hospitalization. 4. Describe medication utilized. 5. Describe medical problems identified and treated. 6. Reassessment of suicide risk Summary of Hospital Course: During the course of his stay, patient (pt) started progressively improving and he no longer remained irritable, depressed, and suicidal. His mood was improved and he started attending groups and meetings and started socializing. Patient denied any feelings of hopelessness, helplessness, and worthlessness, denied any problem with the sleep or appetite, denied suicidal ideation or homicidal ideation. Pt denied any auditory or visual hallucinations. Some changes were made in his current medications and patient was discharged on following medications. He tolerated these medications very well and denied any side effects. - Final Diagnosis (DSM 5) Condition upon Discharge: FAIR DSM 5: Major depressive disorder recurrent severe with psychotic features Opioid use disorder severe Opioid withdrawal Cannabis use disorder mild Disposition: HOME/ ROUTINE Follow-up Treatment Plan: Education: Pt was educated and counseled about the risks and benefits of taking and not taking medications. Pt was educated and counseled about the risks of drinking and abusing drugs. Pt was educated and counseled to go to the ER or call 911 if pt develop suicidal ideation or homicidal ideation, worsening of symptoms or severe side effects of the meds. Prescriptions/Medication Reconciliation: Gabapentin [Neurontin] 100 mg PO BID #60 cap PARoxetine [Paxil] 20 mg PO DAILY #30 tab traZODone [Desyrel] 100 mg PO HS #30 tab - Smoking Cessation Smoking Cessation Medication prescribed: No - Antipsychotic Medications Pt discharged on 2 or more routine antipsychotic medications: No
== END 2016-12-17 12:15 | disposition home or self-care (01) | DRG 430 ==
LOC: C.ER 01:17 → C.5E 03:08
PROVIDERS: ADMIT Psychiatry & Neurology Psychiatry; ATTEND Psychiatry & Neurology Psychiatry
PROC: GZHZZZZ Group Psychotherapy (ICD-10-PCS; principal; 2016-12-10)
PROC: GZ56ZZZ Individual Psychotherapy, Supportive (ICD-10-PCS; 2016-12-10)
PROC: HZ2ZZZZ Detoxification Services for Substance Abuse Treatment (ICD-10-PCS; 2016-12-10)
PROC: HZ81ZZZ Medication Management for Substance Abuse Treatment, Methadone Maintenance (ICD-10-PCS; 2016-12-10)
DX: F33.3 Major depressive disorder, recurrent, severe with psychotic symptoms (principal); R45.851 Suicidal ideations; I10 Essential (primary) hypertension; F11.23 Opioid dependence with withdrawal; J44.9 Chronic obstructive pulmonary disease, unspecified; F12.90 Cannabis use, unspecified, uncomplicated; F17.200 Nicotine dependence, unspecified, uncomplicated; F41.9 Anxiety disorder, unspecified; Z80.1 Family history of malignant neoplasm of trachea, bronchus and lung; Z82.49 Family history of ischemic heart disease and other diseases of the circulatory system

== ENCOUNTER 2016-12-23 16:52 | Emergency (ER) | payer MEDICAID ==
[2016-12-23 16:53] VITALS: BMI 24.2
--- NOTE | 2016-12-23 17:13 | C.PDOC ---
History Of Present Illness <Salud Perez - Last Filed: 12/23/16 18:48> <Myesha Mckeon - Last Filed: 12/23/16 22:27> 51 yr old male presents to the ER with complaints of feeling depressed and suicidal. Patient reports he planned to jump off a roof today. Patient denies homicidal ideation, hallucinations, weakness or numbness. (Salud Perez) Patient is accepted for psychiatric admission at [facility] but he is refusing. He states that "they won't treat my substance issues". He is given referral for [facility] but is irate and claims he will not follow up. Patient in in no physical distress and is angry and requesting transportation home. He is threatening to [facility] the hospital. (Myesha Mckeon) History Per: Patient History/Exam Limitations: no limitations Onset/Duration Of Symptoms: Persistent Current Symptoms Are (Timing): Still Present Severity: Mild Recent travel outside of the [place]: No <Salud Perez - Last Filed: 12/23/16 18:48> <Myesha Mckeon - Last Filed: 12/23/16 22:27> Time Seen by Provider: 12/23/16 16:58 Past Medical History Reviewed: Historical Data, Nursing Documentation, Vital Signs - Medical History PMH: Depression, Gastritis, HTN Surgical History: Hernia Repair Family History: States: No Known Family Hx - Social History Hx Tobacco Use: Yes Hx Alcohol Use: No Hx Substance Use: Yes - Immunization History Hx Tetanus Toxoid Vaccination: No Hx Influenza Vaccination: Yes Hx Pneumococcal Vaccination: Yes <Salud Perez - Last Filed: 12/23/16 18:48> Review Of Systems Except As Marked, All Systems Reviewed And Found Negative. Neurological: Negative for: Weakness, Numbness Psych: Positive for: Depression, Suicidal ideation, Other (No homicidal ideations. No plan. ) <Salud Perez - Last Filed: 12/23/16 18:48> Physical Exam - Physical Exam Appears: Non-toxic, No Acute Distress Skin: Warm, Dry, No Rash Head: Atraumatic, Normacephalic Neck: Normal Chest: Symmetrical, No Tenderness Cardiovascular: Rhythm Regular, No Murmur Respiratory: Normal Breath Sounds, No Rales, No Rhonchi, No Wheezing Extremity: Normal ROM, No Swelling Neurological/Psych: Oriented x3, Normal Speech, Normal Motor <Salud Perez - Last Filed: 12/23/16 18:48> ED Course And Treatment - Laboratory Results Result Diagrams: 12/23/16 17:31 12/23/16 17:31 Lab Interpretation: No Acute Changes Progress Note: Case discussed and patient evaluated by lawn service worker. Ambulating in room calm and cooperative in no distress Reassessment Condition: Unchanged <Salud Perez - Last Filed: 12/23/16 18:48> - Laboratory Results Result Diagrams: 12/23/16 17:31 12/23/16 17:31 Lab Interpretation: No Acute Changes - Radiology CXR: Interpreted by Me CXR Interpretation: Yes: No Acute Disease Progress Note: Case discussed with lawn service worker. Dr Santamaria does not agree to admission at this time. Patient recently had an admission here for same and was discharged 6 days ago. Patient extremely upset with this decision and states that he "is extremely suicidal". He claims he will go home and jump off his 20 story building or jump in front of a car if he is forced to be discharged. he is c/o abdominal pain for "being upset". He has not had anything to eat today. He was provided with a diet tray and given Bentyl IM> <Myesha Mckeon - Last Filed: 12/23/16 22:27> Medical Decision Making <Salud Perez - Last Filed: 12/23/16 18:48> <Myesha Mckeon - Last Filed: 12/23/16 22:27> Medical Decision Making: PLAN: * Alcohol Serum * Drug Screen * CBC * CMP * Urinalysis (Salud Perez) ED OBSERVATION <Salud Perez - Last Filed: 12/23/16 18:48> <Myesha Mckeon - Last Filed: 12/23/16 22:27> - Observation admission statement Patient is being placed in observation because:: crisis evaluation (Salud Perez) Disposition - Disposition Disposition Time: 19:00 - POA Present On Arrival: None <Salud Perez - Last Filed: 12/23/16 18:48> - Disposition Disposition Time: 22:25 <Myesha Mckeon - Last Filed: 12/23/16 22:27> - Disposition Disposition: HOME/ ROUTINE Condition: STABLE Instructions: Polysubstance Abuse (ED), Depression (ED), Suicide Prevention For Adolescents (ED) - Clinical Impression Clinical Impression: Substance abuse, Major depression - PA / BETTING CLERK / Resident Statement MD/DO has reviewed & agrees with the documentation as recorded. - Scribe Statement The provider has reviewed the documentation as recorded by the Scribe <Salud Perez - Last Filed: 12/23/16 18:48> <Myesha Mckeon - Last Filed: 12/23/16 22:27> - Scribe Statement Ghazal Frey All medical record entries made by the Scribe were at my direction and personally dictated by me. I have reviewed the chart and agree that the record accurately reflects my personal performance of the history, physical exam, medical decision making, and the department course for this patient. I have also personally directed, reviewed, and agree with the discharge instructions and disposition. (Salud Perez) Physician Patient Turnover Patient Signed Over To: Myesha Mckeon Handoff Comments: crisis evaluation <Salud Perez - Last Filed: 12/23/16 18:48>
[2016-12-23 17:34] LABS: BASO # 0.1 K/uL (0.0-0.2); BASO % 0.6 % (0.0-2.0); EOS # 0.1 K/uL (0.0-0.7); EOS % 0.5 % (0.0-4.0); HEMATOCRIT 41.6 % (35.0-51.0); LYMPH # 2.9 K/uL (1.0-4.3); LYMPH % 25.5 % (20.0-40.0); MEAN CORPUSCULAR HEMOGLOBIN 30.9 pg (27.0-31.0); MEAN PLATELET VOLUME 7.9 fL (7.2-11.7); MONO # 0.7 K/uL (0.0-0.8); MONO % 6.2 % (0.0-10.0); NRBC % 0.1 % (0.0-2.0); RED CELL DISTRIBUTION WIDTH 13.4 % (11.5-14.5); WHITE BLOOD COUNT 11.5 K/uL (4.8-10.8)
[2016-12-23 17:40] LABS: MEAN CELL VOLUME 88.2 fL (80.0-94.0)
[2016-12-23 17:46] LABS: CHLORIDE 107 mmol/L (98-107)
[2016-12-23 17:47] LABS: POTASSIUM 3.8 mmol/L (3.6-5.2); SODIUM 139 mmol/L (132-148)
[2016-12-23 17:49] LABS: ALB/GLOB RATIO 1.2 (1.0-2.1); AST/SGOT 25 U/L (17-59); BILIRUBIN,TOTAL 0.8 mg/dL (0.2-1.3); CARBON DIOXIDE 18 mmol/L (22-30); GFR AFRICAN-AMERICAN > 60; TOTAL PROTEIN 7.7 g/dL (6.3-8.3)
[2016-12-23 17:50] LABS: ALCOHOL SERUM < 10 mg/dl (0-10); ALKALINE PHOSPHATASE 102 U/L (38-126); ALT/SGPT 28 U/L (21-72); BLOOD UREA NITROGEN 10 mg/dL (9-20); CALCIUM 9.8 mg/dl (8.6-10.4); GLUCOSE,RANDOM 90 mg/dL (75-110)
[2016-12-23] MEDS ORDERED: Aluminum Hydroxide/Magnesium Hydroxide Susp (30 mL) ONE (18:04)
[2016-12-23] MEDS ORDERED: Aluminum Hydroxide/Magnesium Hydroxide Susp (30 mL) PO ONE (18:27)
[2016-12-23 18:31] LABS: RBC URINE 5 /hpf (0-3); URINE BILIRUBIN NEGATIVE (NEGATIVE); URINE BLOOD 1+ (NEGATIVE); URINE COLOR Yellow (YELLOW); URINE GLUCOSE (UA) NORMAL (Normal); URINE KETONE NEGATIVE (NEGATIVE); URINE LEUKOCYTE ESTERASE NEG Leu/uL (Negative); URINE PROTEIN NEGATIVE (NEGATIVE); URINE UROBILINOGEN NORMAL mg/dL (0.2-1.0); WBC URINE 2 /hpf (0-5)
[2016-12-23 23:33] VITALS: RESP 18
[2016-12-24 03:02] VITALS: BP 155/86; PULSE 71; TEMP 97.5; O2SAT 98
--- NOTE | 2016-12-24 09:48 | RAD ---
HISTORY: medical clearance COMPARISON: 04/11/2016 TECHNIQUE: Chest PA and lateral FINDINGS: LUNGS: No focal infiltrate or effusion. Biapical pleural thickening with some upper lobe granulomatous changes. Small nodular density projects over the right upper lung zone at the level of the posterior right 4th rib. This was not as well appreciated on the prior study. Clinical correlation. PLEURA: No significant pleural effusion identified. No pneumothorax apparent. CARDIOVASCULAR: Normal. OSSEOUS STRUCTURES: No significant abnormalities. VISUALIZED UPPER ABDOMEN: Normal. OTHER FINDINGS: None. IMPRESSION: No focal infiltrate or effusion. Biapical pleural thickening with some upper lobe granulomatous changes. Small nodular density projects over the right upper lung zone at the level of the posterior right 4th rib. This was not as well appreciated on the prior study. Clinical correlation.
--- NOTE | 2016-12-24 19:12 | CARD ---
APPROVED REPORT EKG Measurement Heart [id number] <Conclusion> Sinus rhythm with occasional premature ventricular complexes Otherwise normal ECG
== END 2016-12-24 03:04 | disposition home or self-care (01) ==
LOC: C.ER 16:52
DX: F33.9 Major depressive disorder, recurrent, unspecified (principal); F19.10 Other psychoactive substance abuse, uncomplicated
CPT/HCPCS: 71020; 80053; 80320; 80324; 80345; 80346; 80349; 80353; 80358; 80361; 81001; 82948; 83992; 85025; 93005; 96372; 99285; J0500

== ENCOUNTER 2017-04-05 18:42 | Inpatient (IN) | payer MEDICAID ==
[2017-04-05 18:42] VITALS: BMI 24.2
--- NOTE | 2017-04-05 19:21 | C.PDOC ---
History Of Present Illness Patient presents to the ER with a complaint of being depressed. Patient states he feels like he wants to jump off of his 20 story building. Denies physical complaints at this time. Time Seen by Provider: 04/05/17 19:19 Chief Complaint (Nursing): Psychiatric Evaluation History Per: Patient History/Exam Limitations: no limitations Onset/Duration Of Symptoms: Days Current Symptoms Are (Timing): Still Present Suicide/Self Injury Attempted (Context): None Modifying Factor(s): None Severity: None Pain Scale Rating Of: 0 Associated Symptoms: Depression, Suicidal Thoughts Involuntary Hold By: None Recent travel outside of the [place]: No Past Medical History Reviewed: Historical Data, Nursing Documentation, Vital Signs Vital Signs: Last Vital Signs Temp 98.0 F 04/05/17 18:57 Pulse 102 H 04/05/17 18:57 Resp 20 04/05/17 18:57 BP 106/76 04/05/17 18:57 Pulse Ox 98 04/05/17 21:24 - Medical History PMH: Anxiety, Arthritis, Back Problems, COPD, Depression, Gastritis, HTN, Schizophrenia (family reports possible hx of schizophrenia) Surgical History: Back Surgery, Hernia Repair - [facility] DETOXIFICATION SERVICES FOR SUBSTANCE ABUSE TREATMENT (12/10/16) GROUP PSYCHOTHERAPY (12/24/16) INDIVIDUAL PSYCHOTHERAPY, BEHAVIORAL (12/24/16) INDIVIDUAL PSYCHOTHERAPY, SUPPORTIVE (12/10/16) MEDICATION MANAGEMENT (04/11/16) MEDS MGMT FOR SUBSTANCE ABUSE TREATMENT, METHADONE MAINT (12/10/16) Family History: States: No Known Family Hx - Social History Hx Tobacco Use: Yes Hx Alcohol Use: No Hx Substance Use: Yes - Immunization History Hx Tetanus Toxoid Vaccination: No Hx Influenza Vaccination: Yes Hx Pneumococcal Vaccination: Yes Review Of Systems Constitutional: Negative for: Fever, Chills Cardiovascular: Negative for: Chest Pain Gastrointestinal: Negative for: Nausea, Vomiting, Diarrhea Musculoskeletal: Negative for: Back Pain Skin: Negative for: Rash Neurological: Negative for: Weakness Psych: Positive for: Depression, Suicidal ideation Physical Exam - Physical Exam Appears: Non-toxic, No Acute Distress, Other (Pleasant, Cooperative) Skin: Warm, Dry Head: Normacephalic Eye(s): bilateral: Normal Inspection Oral Mucosa: Moist Neck: Supple Chest: Symmetrical Cardiovascular: Rhythm Regular Respiratory: No Rales, No Rhonchi, No Wheezing Gastrointestinal/Abdominal: Soft, No Tenderness Back: Normal Inspection Extremity: No Tenderness Extremity: Bilateral: Atraumatic Neurological/Psych: Oriented x3 Gait: Steady ED Course And Treatment - Laboratory Results Result Diagrams: 04/05/17 19:25 04/05/17 19:25 O2 Sat by Pulse Oximetry: 98 (Room air) Pulse Ox Interpretation: Normal Progress Note: Blood work and urinalysis ordered. Crisis notified. Disposition Discussed With Dr.: Pollo Camacho Comment: accepted the pt on his service and took over the care at 9:24 PM Doctor Will See Patient In The: Hospital Counseled Patient/Family Regarding: Studies Performed, Diagnosis - Disposition Disposition: HOSPITALIZED Disposition Time: 19:20 Condition: FAIR Forms: [facility] (Uzbek) - POA Present On Arrival: None - Clinical Impression Clinical Impression: Substance induced mood disorder, Depression - Scribe Statement The provider has reviewed the documentation as recorded by the Scribe Octavio Nunez All medical record entries made by the Scribe were at my direction and personally dictated by me. I have reviewed the chart and agree that the record accurately reflects my personal performance of the history, physical exam, medical decision making, and the department course for this patient. I have also personally directed, reviewed, and agree with the discharge instructions and disposition. Decision To Admit - Pt Status Changed To: Hospital Disposition Of: Inpatient - Admit Certification Admit to Inpatient:: After my assessment, the patient will require hospitalization for at least two midnights. This is because of the severity of symptoms shown, intensity of services needed, and/or the medical risk in this patient being treated as an outpatient. - InPatient: Physician Admission Certification: I certify that this patient requires 2 or more midnights of care for the following reason:: After my assessment, the patient will require hospitalization for at least two midnights. This is because of the severity of symptoms shown, intensity of services needed, and/or the medical risk in this patient being treated as an outpatient. - . Bed Request Type: Psychiatry Admitting Physician: Pollo Camacho Patient Diagnosis: Substance induced mood disorder, Depression
[2017-04-05 19:29] LABS: BASO # 0.1 K/uL (0.0-0.2); BASO % 0.7 % (0.0-2.0); EOS # 0.1 K/uL (0.0-0.7); EOS % 1.1 % (0.0-4.0); LYMPH # 2.7 K/uL (1.0-4.3); LYMPH % 24.9 % (20.0-40.0); MEAN CELL VOLUME 88.7 fL (80.0-94.0); MEAN CORPUSCULAR HEMOGLOBIN 30.4 pg (27.0-31.0); MEAN CORPUSCULAR HGB CONC 34.3 g/dL (33.0-37.0); MEAN PLATELET VOLUME 8.5 fL (7.2-11.7); MONO # 0.5 K/uL (0.0-0.8); MONO % 4.9 % (0.0-10.0); RED CELL DISTRIBUTION WIDTH 13.5 % (11.5-14.5)
[2017-04-05 19:36] LABS: CHLORIDE 101 mmol/L (98-107); SODIUM 141 mmol/L (132-148)
[2017-04-05 19:38] LABS: ALB/GLOB RATIO 1.4 (1.0-2.1); ALKALINE PHOSPHATASE 79 U/L (38-126); AST/SGOT 16 U/L (17-59); BILIRUBIN,TOTAL 0.4 mg/dL (0.2-1.3); BLOOD UREA NITROGEN 15 mg/dL (9-20); CARBON DIOXIDE 23 mmol/L (22-30); GFR AFRICAN-AMERICAN > 60; TOTAL PROTEIN 7.1 g/dL (6.3-8.3)
[2017-04-05 19:39] LABS: ALCOHOL SERUM < 10 mg/dl (0-10); ALT/SGPT 24 U/L (21-72); CALCIUM 9.5 mg/dl (8.6-10.4); GLUCOSE,RANDOM 106 mg/dL (75-110)
[2017-04-05 20:08] LABS: RBC URINE 2 /hpf (0-3); URINE BILIRUBIN NEGATIVE (NEGATIVE); URINE COLOR Yellow (YELLOW); URINE GLUCOSE (UA) NORMAL (Normal); URINE KETONE NEGATIVE (NEGATIVE); URINE LEUKOCYTE ESTERASE NEG Leu/uL (Negative); URINE PROTEIN NEGATIVE (NEGATIVE); URINE UROBILINOGEN NORMAL mg/dL (0.2-1.0); WBC URINE < 1 /hpf (0-5)
[2017-04-05 20:44] LABS: URINE BLOOD TRACE (NEGATIVE)
--- NOTE | 2017-04-05 21:58 | PCM.BM ---
<Ginger Suresh - Last Filed: 04/05/17 21:55> Treatment Plan Problems - Problems identified on initial assessmt Depression Date Initiated: 04/05/17 Time Initiated: 21:56 Assessment reference: NA Status: Active Substance Abuse Date Initiated: 04/05/17 Time Initiated: 21:56 Assessment reference: NA Status: Active Treatment assets and liabiliti Patient Assests: adapts well, cooperative, ADL independent, physically healthy, negotiates basic needs, cognitively intact Patient Liabilities: live alone (Lives with sister), financial problems, substance abuse (Opiates, THC), medical problems (HTN, COPD) - Milieu Protocol Maintain good personal hygiene: daily Encourage regular showers, daily Remind patient to perform daily oral care, other Assist patient to perform ADL's (Self) Conduct patient checks and document Observation sheet: Q15 minutes (Safety) Maintain personal safety: every shift Educate patient to report safety concerns to staff, every shift Monitor environment for contraband/sharps Medication safety: Monitor for expected outcome, potential side effects: every shift, Assess barriers to learning: every shift, Assess readiness for medication education: every shift <Sheyla Bonner - Last Filed: 04/06/17 14:57> - Diagnosis (1) Major depression Status: Acute Interventions: 04/06/17 14:57 * Assess/adjust medications daily and /or as needed * See patient on an individual basis 7x/week to assess symptoms of depression * Monitor for side effects & effectiveness of medications * (2) Opioid use disorder, severe, dependence Status: Acute Interventions: 04/06/17 14:57 * Assess 7x/week regarding severity of withdrawal * Educate regarding risks, benefits, side effects and alternatives of medications * Use Motivational Interviewing for abstinence * Use CBT for relapse prevention * Medication management for withdrawal symptoms * Encourage medication assisted treatment * <Lindsey Duran - Last Filed: 04/07/17 10:44> Family Contact Family involvement: Family/SO is involved Family contact: Patient agrees to contact Family contact name: Marianne Yang-sister Family contacted how many times per week?: 1 - Goals for Treatment Patient goals for treatment: "I'll go to an outpatient program." Discharge/Continuing Care - Education Needs Education Needs: Patient Medication, Patient Coping Skills, Patient Placement options, Patient Community resources - Discharge Discharge Criteria: Tolerates medication w/o severe side effects, No longer exhibiting s/s of withdrawal, Reduction of target symptoms Discharge to:: Home, With Family - Treatment Team Participation Discussed with Family/SO: No Was Patient/Family/SO present at Treatment Team Meeting: Yes
--- NOTE | 2017-04-06 13:13 | PCM.PSYCH ---
Initial Psychiatric Evaluation - Initial Psychiatric Evaluation Type of Admission: Voluntary Legal Status: Capacity Chief Complaint (in patient's own words): "I feel extremely suicidal. It's all I think about." Patient's Reaction to Hospitalization: Cooperative History of Present Illness and Precipitating Events: Pt is seen, chart reviewed, case discussed with staff. Pt is a 52 year old white male with a PMH of depression, opioid and marijuana use disorders, HTN, COPD, arrythmia, disc hernia status post surgery, and chronic pain of the back and shoulder. He is single, does not have children and lives with his sister in [place]. He has not worked since 2005 and collects disability due to shoulder injury he sustained while working at [employer] [place] [employer] in the past. He presented to the ED 04/05/17 for worsening depression and suicidal ideation. He states that much of his depression stems from the deaths of his mother and two brothers from lung cancer. He describes of his mother, "She was my world. I did everything for her and she did everything for me." He also reports of panic attacks, visual and audio hallucinations of his relatives, paranoia, and irritability. He has a history of "quite a few" (unspecified) psychiatric admissions. Per his records, his most recent admission at [facility] occurred on 12/24/16 following a suicide attempt. He had attempted to jump off the roof of his apartment building but was prevented by his sister. He has a brief history of follow up with a psychiatrist at [place] but reports that "I only saw her a couple of times because I didn't like her." He briefly took "two psych meds" (he could not remember their names) and Xanax while he was seeing her. He also reports to smoking cigarettes and marijuana regularly as well as taking ~6 OxyContin pills daily. He has used opioids for the past 15-20 years. He was in detox in 2008 at [facility] but has never been to rehab or NA. His longest period of sobriety was 1-1.5 years. He has used Suboxone in the past which helped him to abstain but he does not currently take it because "It's hard to get." He reports a history of substance use disorder (unspecified) in his cousins and denies a family psychiatric history. After care discussed. He is encouraged to visit [facility] after discharge for Suboxone maintenance and to follow up on psychiatric illnesses. He expresses concern about the 3-4 week wait before we would be able to start Suboxone there. Will work with SW. Current Medications: Active Medications Generic Name Dose Route Start Last Admin Trade Name Freq PRN Reason Stop Dose Admin Aripiprazole 5 mg 04/06/17 22:00 Abilify PO HS NOAH Escitalopram Oxalate 10 mg 04/06/17 12:00 Lexapro PO DAILY NOAH Hydrochlorothiazide 25 mg 04/06/17 11:30 Hydrodiuril PO DAILY NOAH Hydroxyzine HCl 25 mg 04/05/17 22:14 Atarax PO Q6H PRN Anxiety Methadone HCl 15 mg 04/07/17 10:00 Methadone PO 04/10/17 09:59 Q24H NOAH Taper Metoprolol Tartrate 50 mg 04/06/17 11:30 Lopressor PO BID NOAH Pneumococcal Polyvalent Vaccine 0.5 ml 04/08/17 10:00 Pneumovax 23 Vaccine IM 04/08/17 10:01 .ONCE ONE Trazodone HCl 50 mg 04/05/17 22:14 04/05/17 22:42 Desyrel PO 50 mg HS PRN Administration Insomnia Past Psychiatric History - Past Psychiatric History Previous Treatment History: Inpatient Prior Professional Help: Detox Prior Psychiatric Treatment: Many psychiatric hospital admissions, brief history of outpatient follow up History of ETOH/Drug Use: Opioids, marijuana, cigarettes, cocaine History of Family Illness: Substance use disorder in cousins Pertinent Medical Hx (Current Medical&Sleep Prob, Allergies): Allergies Allergy/AdvReac Type Severity Reaction Status Date / Time No Known Allergies Allergy Verified 12/05/14 17:09 Gabapentin [Neurontin] 300 mg PO TID #90 cap 04/16/16 Metoprolol Tartrate [Lopressor] 100 mg PO BID #60 tab 04/16/16 hydroCHLOROthiazide [Microzide] 50 mg PO DAILY #30 tab 04/16/16 Gabapentin [Neurontin] 100 mg PO BID #60 cap 12/17/16 PARoxetine [Paxil] 20 mg PO DAILY #30 tab 12/17/16 traZODone [Desyrel] 100 mg PO HS #30 tab 12/17/16 hydrALAZINE [Apresoline] 50 mg PO DAILY 12/24/16 Albuterol/Ipratropium [Duoneb 3 mg/0.5 mg (3 ml) UD] 3 ml INH RQ6 PRN 12/28/16 PARoxetine [Paxil] 30 mg PO DAILY #30 tab 12/28/16 Gabapentin [Neurontin] 600 mg PO TID #90 12/29/16 Metoprolol Tartrate [Lopressor] 100 mg PO Q12 #60 tab 12/29/16 Zolpidem [Ambien] 10 mg PO HS PRN #14 tab 12/29/16 Review of Systems - Neurological Neurological: UNREMARKABLE - Psychiatric Psychiatric: Auditory Hallucinations, Depression, Irritability, Panic Attacks, Paranoia, Suicidal Ideation, Visual Hallucinations. absent: Homicidal Ideation Mental Status Examination - Personal Presentation Personal Presentation: Looks stated age - Affect Affect: Constricted - Motor Activity Motor Activity: Psychomotor Retardation - Reliability in Providing Information Reliability in Providing Information: Fair - Speech Speech: Organized, Relevant, Coherent - Mood Mood: Depressed - Formal Thought Process Formal Thought Process: Hallucinations, Paranoia - Hallucinations/Delusions Hallucinations: Visual, Auditory - Obsessions/Compulsions Obsessions: None Compulsions: None - Cognitive Functions Orientation: Person, Place, Situation, Time Sensorium: Lethargic Attention/Concentration: Attentive Estimate of Intelligence: Average Judgement: Imparied, as evidence by: Poor judgement (Does not believe that cigarettes increase risk of lung cancer), Intact, as evidence by: Insight regarding need for hospitalization Memory: Recent intact, as evidence by: Ability to recall events of the day, Remote intact, as evidenced by: Abilit to recall sig. life events - Risk Risk: Suicidal, Withdrawal, Diminished functioning - Strength & Assets Inventory Strength & Assets Inventory: Family support, Life experience DSM 5 DX - DSM 5 DSM 5 Diagnosis: Major depressive disorder, recurrent, severe with psychotic features Panic disorder without agoraphobia Personality disorder, unspecified Opioid use disorder, severe Opioid withdrawal - Recommended/Plan of Treatment Treatment Recommendations and Plan of Treatment: Methadone taper Abilify 5 mg PO HS NOAH Lexapro 10 mg PO daily NOAH Atarax 25 mg PO Q6H PRN Desyrel 50 mg PO HS PRN Attend groups and activities Attend self-help groups as well Supportive therapy and psychoeducation IA for abstinence CBT for relapse prevention Encourage MAT Refer to after care Projected ELOS: 5-7 days Prognosis: Good with treatment - Smoking Cessation Smoking Cessation Initiated: No
[2017-04-07] MEDS: Influenza Vaccine 60 mcg/0.5 mL SYR (4YR UP) IM ONE (11:24)
--- NOTE | 2017-04-07 13:43 | PCM.PYCHPN ---
Psychiatric Progress Note - Psychiatric Progress Note Patient seen today, length of contact: 16 min Patient Chief Complaint: "Everything is shitty. I don't feel good at all." Problems Identified/Issues Discussed: Pt is seen, chart reviewed, case discussed with staff. Pt is compliant with medications and reports no side effects. However, he states "my medications aren't working yet" and does not feel well. He is encouraged to be patient and optimistic. He reports of insomnia (< 1 hour sleep last night) and decreased appetite. He also reports SI. However, contracts for safety and will follow safety plan. No intentions or plans. He will need more time to stabilize. Support and psychoeducation given, CBT and DC used briefly. After care discussed. He go back home where he lives with his sister and is interested in IOP. Will work with . Medication Change: Yes (Detox meds change daily) Medical Record Reviewed: Yes Mental Status Examination - Cognitive Function Orientation: Person, Place, Situation, Time Attention: WNL Concentration: WNL Association: WNL Fund of Knowledge: WNL - Mood Mood: Depressed, Other Additional comments: Irritable - Affect Affect: Constricted - Speech Speech: Appropriate - Formal Thought Process Formal Thought Process: No Impairment - Suicidal Ideation Suicidal Ideation: Yes - Homicidal Ideation Homicidal Ideation: No Goal/Treatment Plan - Goal/Treatment Plan Need for Continued Stay: Severe depression anxiety, Discharge may exacerbated symptoms, Severe functional impairment Progress Toward Problem(s) and Goals/Treatment Plan: Methadone taper Continue other medications as prescribed Support and psychoeducation daily Attend groups and activities daily Attend self-help groups as well DC for abstinence CBT for relapse prevention Encourage MAT After care planning with Estimated Date of D/C: 04/12/17
[2017-04-07] MEDS ORDERED: Aluminum Hydroxide/Magnesium Hydroxide Susp (30 mL) PO PRN (18:53)
[2017-04-08] MEDS ORDERED: Pneumococcal 23-Valent Vaccine IM ONE (10:00)
--- NOTE | 2017-04-08 11:42 | PCM.PYCHPN ---
Psychiatric Progress Note - Psychiatric Progress Note Patient seen today, length of contact: 15 min Patient Chief Complaint: "I still can't sleep or eat good" Problems Identified/Issues Discussed: Pt is seen, chart reviewed, case discussed with staff. Pt is compliant with medications and reports no side effects. He is in an unpleasant mood and continues to report of insomnia and lack of appetite. He is encouraged to socialize more with the other patients so that he does not spend so much time ruminating. Symptoms are improving but pt needs more time to stabilize. Support and psychoeducation given, CBT and FL used briefly. After care discussed. He would like to go to [facility] for psych follow up. He is also interested in IOP rehab and emphasizes that he does not want to be discharged home without rehab plan. Will continue to work with [facility]. Medication Change: Yes (Detox meds change daily) Medical Record Reviewed: Yes Mental Status Examination - Cognitive Function Orientation: Person, Place, Situation, Time Memory: Intact Attention: WNL Concentration: WNL Association: WNL Fund of Knowledge: WNL - Mood Mood: Depressed, Other (Irritable) - Affect Affect: Constricted - Speech Speech: Appropriate - Formal Thought Process Formal Thought Process: No Impairment - Suicidal Ideation Suicidal Ideation: Yes - Homicidal Ideation Homicidal Ideation: No Goal/Treatment Plan - Goal/Treatment Plan Need for Continued Stay: Severe depression anxiety, Discharge may exacerbated symptoms, Severe functional impairment Progress Toward Problem(s) and Goals/Treatment Plan: Methadone taper Continue other medications as prescribed Support and psychoeducation daily Attend groups and activities daily Attend self-help groups as well FL for abstinence CBT for relapse prevention Encourage MAT After care planning with [facility] Estimated Date of D/C: 04/12/17 (Pt needs more time to stabilize)
[2017-04-08] MEDS: Influenza Vaccine 60 mcg/0.5 mL SYR (4YR UP) IM ONE (13:25)
[2017-04-09] MEDS: Pantoprazole 20 mg EC Tab PO SCH (13:58)
--- NOTE | 2017-04-09 15:06 | PCM.PYCHPN ---
Psychiatric Progress Note - Psychiatric Progress Note Patient seen today, length of contact: 15 min Patient Chief Complaint: "I'm about the same" Problems Identified/Issues Discussed: Pt is seen, chart reviewed, case discussed with staff. Pt is compliant with medications. He reports a little bit of light-headedness as a side effect. He continues to report issues of insomnia and stomach pain. Symptoms are improving but pt needs more time to stabilize. Support and psychoeducation given, CBT and ND used briefly. After care discussed. Medication Change: Yes (Detox meds change daily) Medical Record Reviewed: Yes Mental Status Examination - Cognitive Function Orientation: Person, Place, Situation, Time Memory: Intact Attention: WNL Concentration: WNL Association: WNL Fund of Knowledge: WNL - Mood Mood: Depressed, Other (Irritable) - Affect Affect: Constricted - Speech Speech: Appropriate - Formal Thought Process Formal Thought Process: No Impairment - Suicidal Ideation Suicidal Ideation: No - Homicidal Ideation Homicidal Ideation: No Goal/Treatment Plan - Goal/Treatment Plan Need for Continued Stay: Severe depression anxiety, Discharge may exacerbated symptoms, Severe functional impairment Progress Toward Problem(s) and Goals/Treatment Plan: Methadone taper Start Seroquel 100 mg PO HS NOAH Continue other medications as prescribed Support and psychoeducation daily Attend groups and activities daily Attend self-help groups as well ND for abstinence CBT for relapse prevention Encourage MAT After care planning with [facility] Estimated Date of D/C: 04/12/17 (Pt needs more time to stabilize)
[2017-04-10] MEDS: Pantoprazole 20 mg EC Tab PO SCH (09:14)
[2017-04-11] MEDS: Pantoprazole 20 mg EC Tab PO SCH (09:08)
--- NOTE | 2017-04-11 13:20 | PCM.PYCHPN ---
Psychiatric Progress Note - Psychiatric Progress Note Patient seen today, length of contact: 16 min Patient Chief Complaint: "I'm better" Problems Identified/Issues Discussed: Pt is seen, chart reviewed, case discussed with staff. No new problems Irritability is decreasing Mood is better slightly, he smoles more Less suicidal Withdrawals are in control AR used Medication Change: Yes (Detox meds change daily) Medical Record Reviewed: Yes Mental Status Examination - Cognitive Function Orientation: Person, Place, Situation, Time Memory: Intact Attention: WNL Concentration: WNL Association: WNL Fund of Knowledge: WNL - Mood Mood: Depressed, Other (Irritable) - Affect Affect: Constricted - Speech Speech: Appropriate - Formal Thought Process Formal Thought Process: No Impairment - Suicidal Ideation Suicidal Ideation: No - Homicidal Ideation Homicidal Ideation: No Goal/Treatment Plan - Goal/Treatment Plan Need for Continued Stay: Severe depression anxiety, Discharge may exacerbated symptoms, Severe functional impairment Progress Toward Problem(s) and Goals/Treatment Plan: Methadone taper Seroquel 100 mg PO HS NOAH Continue other medications as prescribed Support and psychoeducation daily Attend groups and activities daily Attend self-help groups as well AR for abstinence CBT for relapse prevention Encourage MAT After care planning with [facility] Estimated Date of D/C: 04/14/17 (Pt needs more time to stabilize)
[2017-04-12 07:43] VITALS: O2SAT 99
[2017-04-12] MEDS: Pantoprazole 20 mg EC Tab PO SCH (09:11)
--- NOTE | 2017-04-12 13:53 | PCM.PYCHPN ---
Psychiatric Progress Note - Psychiatric Progress Note Patient seen today, length of contact: 16 min Patient Chief Complaint: "Feeling Great" Problems Identified/Issues Discussed: The pt is seen, chart reviewed, case discussed with staff. Mood is very improved. Pt is not aggitated or irritated at staff. no SI, Pt is complient with medications Withdrawals are in control, Pt notified us he got accepted into a rehabilitation center, [facility], in [facility]. Discussed discharging pt this Wednesday04/14/17. Medication Change: Yes (Detox meds change daily) Medical Record Reviewed: Yes Mental Status Examination - Cognitive Function Orientation: Person, Place, Situation, Time Memory: Intact Attention: WNL Concentration: WNL Association: WNL Fund of Knowledge: WNL - Mood Mood: Neutral - Affect Affect: Constricted - Speech Speech: Appropriate - Formal Thought Process Formal Thought Process: No Impairment - Suicidal Ideation Suicidal Ideation: No - Homicidal Ideation Homicidal Ideation: No Goal/Treatment Plan - Goal/Treatment Plan Need for Continued Stay: Discharge may exacerbated symptoms Progress Toward Problem(s) and Goals/Treatment Plan: Methadone taper Seroquel 100 mg PO HS NOAH Continue other medications as prescribed Support and psychoeducation daily Attend groups and activities daily Attend self-help groups as well SC for abstinence CBT for relapse prevention Encourage MAT After care planning with [facility] Estimated Date of D/C: 04/14/17 (Pt needs more time to stabilize) - Smoking Cessation Smoking Cessation Initiated: No
[2017-04-13] MEDS: Pantoprazole 20 mg EC Tab PO SCH (09:05)
--- NOTE | 2017-04-13 13:30 | PCM.PYCHPN ---
Psychiatric Progress Note - Psychiatric Progress Note Patient seen today, length of contact: 16 min Patient Chief Complaint: "Feels better today" Problems Identified/Issues Discussed: The pt is seen, chart reviewed, case discussed with staff. Support given, CBT and UT used briefly No new symptoms reported Slept well overnight, No SEs from medications, risks discussed. Discussed tomorrows discharge plans regarding transportation to [facility] Medication Change: Yes (Detox meds change daily) Medical Record Reviewed: Yes Mental Status Examination - Cognitive Function Orientation: Person, Place, Situation, Time Memory: Intact Attention: WNL Concentration: WNL Association: WNL Fund of Knowledge: WNL - Mood Mood: Neutral - Affect Affect: Constricted - Speech Speech: Appropriate - Formal Thought Process Formal Thought Process: No Impairment - Suicidal Ideation Suicidal Ideation: No - Homicidal Ideation Homicidal Ideation: No Goal/Treatment Plan - Goal/Treatment Plan Need for Continued Stay: Discharge may exacerbated symptoms Progress Toward Problem(s) and Goals/Treatment Plan: Methadone taper Seroquel 100 mg PO HS NOAH Continue other medications as prescribed Support and psychoeducation daily Attend groups and activities daily Attend self-help groups as well UT for abstinence CBT for relapse prevention Encourage MAT After care planning with [facility] Estimated Date of D/C: 04/14/17 (Pt needs more time to stabilize)
[2017-04-14 07:44] VITALS: BP 123/83; PULSE 64; RESP 18; TEMP 97.7
[2017-04-14] MEDS: Pantoprazole 20 mg EC Tab PO SCH (09:24)
--- NOTE | 2017-04-14 09:38 | PCM.PYCHDC ---
Mental Status Examination - Mental Status Examination Orientation: Person, Place, Situation, Time Memory: Intact Mood: Neutral Affect: Broad Speech: Appropriate Attention: WNL Concentration: WNL Association: WNL Fund of Knowledge: WNL Formal Thought Process: No Impairment Discharge Summary - Discharge Note Reason for Hospitalization: Depression and opioid withdrawal Consultations:: List each consultation separately and include: 1. Reason for request. 2. Findings. 3. Follow-up Summary of Hospital Course include:: 1. Description of specific treatment plan utilized for patients during their course of treatmen. 2. Summarize the time- course for resolution of acute symptoms and/or regressed behaviors. 3. Describe issues identified and worked on during hospitalization. 4. Describe medication utilized. 5. Describe medical problems identified and treated. 6. Reassessment of suicide risk Summary of Hospital Course: Pt is seen, chart reviewed, case discussed with staff. Pt is a 52 year old white male with a PMH of depression, opioid and marijuana use disorders, HTN, COPD, arrythmia, disc hernia status post surgery, and chronic pain of the back and shoulder. He is single, does not have children and lives with his sister in [place]. He has not worked since 2005 and collects disability due to shoulder injury he sustained while working at [employer] in the past. He presented to the ED 04/05/17 for worsening depression and suicidal ideation. He states that much of his depression stems from the deaths of his mother and two brothers from lung cancer. He describes of his mother, "She was my world. I did everything for her and she did everything for me." He also reports of panic attacks, visual and audio hallucinations of his relatives, paranoia, and irritability. He has a history of "quite a few" (unspecified) psychiatric admissions. Per his records, his most recent admission at [facility] occurred on 12/24/16 following a suicide attempt. He had attempted to jump off the roof of his apartment building but was prevented by his sister. He has a brief history of follow up with a psychiatrist at [facility] but reports that "I only saw her a couple of times because I didn't like her." He briefly took "two psych meds" (he could not remember their names) and Xanax while he was seeing her. He also reports to smoking cigarettes and marijuana regularly as well as taking ~6 OxyContin pills daily. He has used opioids for the past 15-20 years. He was in detox in 2008 at [facility] but has never been to rehab or NA. His longest period of sobriety was 1-1.5 years. He has used Suboxone in the past which helped him to abstain but he does not currently take it because "It's hard to get." He reports a history of substance use disorder (unspecified) in his cousins and denies a family psychiatric history. After care discussed. He is encouraged to visit [facility] after discharge for Suboxone maintenance and to follow up on psychiatric illnesses. He expresses concern about the 3-4 week wait before we would be able to start Suboxone there. Will work with SW. - Final Diagnosis (DSM 5) Condition upon Discharge: FAIR DSM 5: Major Depression and Opioid Use disorder Disposition: HOME/ ROUTINE Follow-up Treatment Plan: Continue below medications after discharge. Follow after care plan as discussed. Use relapse prevention skills Return to ER or call 911 if suicidal, homicidal or symptoms relapse. Stay away from stress, alcohol and drugs. See primary doctor regularly and get labs. Prescriptions/Medication Reconciliation: ARIPiprazole [Abilify] 10 mg PO HS #30 tab Escitalopram [Lexapro] 20 mg PO DAILY #30 tab hydroCHLOROthiazide [Hydrodiuril] 25 mg PO DAILY #30 tab Metoprolol Tartrate [Lopressor] 50 mg PO BID #60 tab Pantoprazole [Protonix EC Tab] 20 mg PO DAILY #30 ect QUEtiapine [Seroquel] 100 mg PO HS #30 tab traZODone [Desyrel] 100 mg PO HS PRN #30 tab PRN Reason: Insomnia - Smoking Cessation Smoking Cessation Medication prescribed: No - Antipsychotic Medications Pt discharged on 2 or more routine antipsychotic medications: Yes
== END 2017-04-14 11:31 | disposition home or self-care (01) | DRG 430 ==
LOC: C.ER 18:42 → C.5E 21:22
PROC: GZHZZZZ Group Psychotherapy (ICD-10-PCS; principal; 2017-04-05)
PROC: GZ58ZZZ Individual Psychotherapy, Cognitive-Behavioral (ICD-10-PCS; 2017-04-05)
PROC: GZ56ZZZ Individual Psychotherapy, Supportive (ICD-10-PCS; 2017-04-05)
DX: F33.3 Major depressive disorder, recurrent, severe with psychotic symptoms (principal); I10 Essential (primary) hypertension; F11.23 Opioid dependence with withdrawal; J44.9 Chronic obstructive pulmonary disease, unspecified; F12.90 Cannabis use, unspecified, uncomplicated; F17.210 Nicotine dependence, cigarettes, uncomplicated; F41.0 Panic disorder [episodic paroxysmal anxiety]; F60.9 Personality disorder, unspecified; G47.00 Insomnia, unspecified; Z79.899 Other long term (current) drug therapy; Z80.1 Family history of malignant neoplasm of trachea, bronchus and lung

== ENCOUNTER 2017-10-28 08:33 | Inpatient (IN) | payer MEDICAID ==
[2017-10-28 08:46] VITALS: BMI 24.1
[2017-10-28 09:09] LABS: BASO # 0.1 K/uL (0.0-0.2); BASO % 0.5 % (0.0-2.0); EOS % 0.1 % (0.0-4.0); LYMPH # 1.1 K/uL (1.0-4.3); LYMPH % 8.8 % (20.0-40.0); MEAN CELL VOLUME 88.8 fL (80.0-94.0); MEAN CORPUSCULAR HEMOGLOBIN 30.7 pg (27.0-31.0); MEAN CORPUSCULAR HGB CONC 34.6 g/dL (33.0-37.0); MEAN PLATELET VOLUME 8.6 fL (7.2-11.7); MONO # 0.3 K/uL (0.0-0.8); MONO % 2.6 % (0.0-10.0); NEUT # 10.7 K/uL (1.8-7.0); NRBC % 0.1 % (0.0-2.0); PLATELET COUNT 321 K/uL (130-400); RBC 5.06 Mil/uL (4.40-5.90); RED CELL DISTRIBUTION WIDTH 14.2 % (11.5-14.5); WHITE BLOOD COUNT 12.2 K/uL (4.8-10.8)
[2017-10-28] MEDS ORDERED: Aluminum Hydroxide/Magnesium Hydroxide Susp (30 mL) ONE (09:13)
[2017-10-28 09:14] LABS: HEMOGLOBIN 15.5 g/dL (12.0-18.0)
--- NOTE | 2017-10-28 09:23 | C.PDOC ---
History Of Present Illness 52 y/o male presents to ED for oxycodone and Xanax detox. Patient denies suicidal ideation, homicidal ideation or any other physical complaints at this time. Time Seen by Provider: 10/28/17 08:38 Chief Complaint (Nursing): Psychiatric Evaluation History Per: Patient History/Exam Limitations: no limitations Onset/Duration Of Symptoms: Days Current Symptoms Are (Timing): Still Present Suicide/Self Injury Attempted (Context): None Modifying Factor(s): None Past Medical History Reviewed: Historical Data, Nursing Documentation, Vital Signs Vital Signs: Last Vital Signs Temp 98.4 F 10/29/17 05:13 Pulse 60 10/29/17 05:13 Resp 18 10/29/17 05:13 BP 129/80 10/29/17 05:13 Pulse Ox 98 10/29/17 05:13 - Medical History PMH: Anxiety, Arthritis, Back Problems, COPD, Depression, Gastritis, HTN, Schizophrenia Surgical History: Back Surgery, Hernia Repair - [facility] Procedures DETOXIFICATION SERVICES FOR SUBSTANCE ABUSE TREATMENT (05/08/17) GROUP PSYCHOTHERAPY (09/21/17) INDIV PSYCHOTHERAPY FOR SUBSTANCE ABUSE TREATMENT, SUPPORT (09/21/17) INDIV PSYCHOTHERAPY FOR SUBSTANCE ABUSE, COGNITIV BEHAVIORAL (05/08/17) INDIV PSYCHOTHERAPY FOR SUBSTANCE ABUSE, MOTIVATION ENHANCE (09/21/17) INDIVIDUAL PSYCHOTHERAPY, BEHAVIORAL (08/22/17) INDIVIDUAL PSYCHOTHERAPY, COGNITIVE-BEHAVIORAL (05/08/17) INDIVIDUAL PSYCHOTHERAPY, SUPPORTIVE (05/08/17) MEDICATION MANAGEMENT (04/11/16) MEDS MGMT FOR SUBSTANCE ABUSE TREATMENT, METHADONE MAINT (12/10/16) PHARMACOTHERAPY FOR SUBSTANCE ABUSE, METHADONE MAINT (05/08/17) Family History: States: No Known Family Hx - Social History Hx Tobacco Use: Yes Hx Alcohol Use: Yes (sober 20 years) Hx Substance Use: Yes (last time yesterday, opiods, and pot) - Immunization History Hx Tetanus Toxoid Vaccination: Yes Hx Influenza Vaccination: Yes Hx Pneumococcal Vaccination: Yes Review Of Systems Except As Marked, All Systems Reviewed And Found Negative. Psych: Positive for: Other (Substance abuse ) Physical Exam - Physical Exam Appears: Non-toxic, No Acute Distress Skin: Warm, Dry, No Rash Head: Atraumatic, Normacephalic Eye(s): bilateral: PERRL, EOMI Oral Mucosa: Moist Neck: Normal ROM, Supple Cardiovascular: Rhythm Regular Respiratory: Normal Breath Sounds, No Rales, No Rhonchi, No Wheezing Gastrointestinal/Abdominal: Soft, No Tenderness, No Guarding, No Rebound Extremity: Normal ROM, Capillary Refill (<2 seconds) Neurological/Psych: Oriented x3, Normal Speech, Normal Cognition ED Course And Treatment - Laboratory Results Result Diagrams: 10/28/17 09:00 10/28/17 09:00 O2 Sat by Pulse Oximetry: 98 (RA) Pulse Ox Interpretation: Normal Medical Decision Making Medical Decision Making: Assessment: Substance abuse, detox Plan: Blood work, UA, Drug screen ordered Progress: Pending medical clearance for detox admission 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 Patient accepted by Dr. Bonner for severe opiate use disorder Disposition Discussed With : Sheyla Bonner Doctor Will See Patient In The: Hospital Counseled Patient/Family Regarding: Studies Performed, Diagnosis - Disposition Disposition: HOSPITALIZED Disposition Time: 12:35 Condition: FAIR - Clinical Impression Clinical Impression: Opioid use disorder, severe, dependence - Scribe Statement The provider has reviewed the documentation as recorded by the Kaneibralf Pradhan All medical record entries made by the Kaneibralf were at my direction and personally dictated by me. I have reviewed the chart and agree that the record accurately reflects my personal performance of the history, physical exam, medical decision making, and the department course for this patient. I have also personally directed, reviewed, and agree with the discharge instructions and disposition.
[2017-10-28 09:26] LABS: ALB/GLOB RATIO 1.2 (1.0-2.1); ALBUMIN 4.5 g/dL (3.5-5.0); ALT/SGPT 9 U/L (21-72); AST/SGOT 21 U/L (17-59); BLOOD UREA NITROGEN 14 mg/dL (9-20); CALCIUM 9.9 mg/dl (8.6-10.4); GFR AFRICAN-AMERICAN > 60; GFR NON-AFRICAN AMERICAN > 60
[2017-10-28 10:01] LABS: BANDS 1 % (0-2); BASOPHIL 1 % (0-2); LYMPHOCYTE 10 % (20-40); MONOCYTE 5 % (0-10); NEUTROPHIL 83 % (50-75); PLATELET ESTIMATE NORMAL (NORMAL); TOTAL CELLS COUNTED 100
[2017-10-28] MEDS ORDERED: Aluminum Hydroxide/Magnesium Hydroxide Susp (30 mL) PO STA (10:05)
[2017-10-28] MEDS ORDERED: Sodium Chloride 0.9% 1,000 ML IV ONE (10:52)
[2017-10-28] MEDS ORDERED: Sodium Chloride 0.9% 1,000 ML ONE (10:57)
[2017-10-28 12:01] LABS: SQUAMOUS EPITHIAL < 1 /hpf (0-5); URINE BACTERIA RARE (<OCC); URINE BILIRUBIN NEGATIVE (NEGATIVE); URINE BLOOD 1+ (NEGATIVE); URINE CLARITY Hazy (Clear); URINE COLOR Amber (YELLOW); URINE GLUCOSE (UA) NORMAL (Normal); URINE LEUKOCYTE ESTERASE NEG Leu/uL (Negative); URINE PROTEIN 2+ mg/dL (NEGATIVE)
[2017-10-28 12:08] LABS: BARBITURATES, UR NEGATIVE (NEGATIVE); OPIATES, UR NEGATIVE (NEGATIVE); PHENCYCLIDINE, UR NEGATIVE (NEGATIVE)
[2017-10-28 12:24] LABS: BENZODIAZEPINES, UR POSITIVE (NEGATIVE)
[2017-10-28] MEDS ORDERED: Aluminum Hydroxide/Magnesium Hydroxide Susp (30 mL) PO PRN (13:14)
--- NOTE | 2017-10-28 13:15 | PCM.PSYCH ---
Initial Psychiatric Evaluation - Initial Psychiatric Evaluation Type of Admission: Voluntary Legal Status: Capacity Chief Complaint (in patient's own words): "I am withdrawing" History of Present Illness and Precipitating Events: The pt is seen, chart reviewed and case discussed. He is well-known from previous admissions. Pt is a 52 year old male with a PMH of depression, opioid and cannabis use disorders, HTN, COPD, arrythmia, disc hernia and chronic pain of the back and shoulder. He is single, does not have children and lives with his sister in [place]. He has not worked since 2005 and collects disability due to shoulder injury he sustained while working at [employer] in the past. He again states that much of his depression stems from the deaths of his mother and two brothers from lung cancer. He says he is depressed but not suicidal. He admits to claiming to be suicidal to get into hospital. He uses heroin occaisonally but also takes Oxycontin 80 mg 4 times a day. He also takes 1-2 Xanax 2 mg tab, and smokes MJ but denies all others. He is currently in withdrawal, meds started even in ER. Past psych hx: He has a history of several psychiatric admissions. He has a brief history of follow up with a psychiatrist at [place]. He has been non- compliant for the most part. He has used opioids for the past 15-20 years. He was in detox in 2008 at [facility] but has never been to rehab or NA. His longest period of sobriety was 1 -1.5 years. He has used Suboxone in the past which helped him to abstain. Family psych hx: He reports a history of substance use disorder (unspecified) in his cousins.. Medical hx: HTN,, COPD, hx of arrythmias and disc hernia and some "pain." Current Medications: Active Medications Generic Name Dose Route Start Last Admin Trade Name Freq PRN Reason Stop Dose Admin Al Hydrox/Mg Hydrox/Simethicone 30 ml 10/28/17 13:14 Maalox 30 Ml PO TID PRN Indigestion / Heartburn Clonidine HCl 0.1 mg 10/28/17 13:14 Catapres PO Q6H PRN COWS Score More or Equal to 5 Loperamide HCl 2 mg 10/28/17 13:14 Imodium PO Q8 PRN Diarrhea Ondansetron HCl 4 mg 10/28/17 13:14 Zofran Tab PO Q8 PRN Nausea/Vomiting Past Psychiatric History - Past Psychiatric History Previous Treatment History: Inpatient Pertinent Medical Hx (Current Medical&Sleep Prob, Allergies): Allergies Allergy/AdvReac Type Severity Reaction Status Date / Time galina Allergy SHORTNESS Uncoded 10/28/17 08:38 OF BREATH Metoprolol Tartrate [Lopressor] 25 mg PO Q12 08/22/17 hydrALAZINE [Apresoline] 25 mg PO Q12 09/21/17 Review of Systems - Musculoskeletal Musculoskeletal: Other (pain due to wdw) - Neurological Neurological: Tremor - Psychiatric Psychiatric: Abnormal Sleep Pattern, Anhedonia, Change in Appetite, Depression, Difficulty Concentrating, Irritability. absent: Hallucinations, Homicidal Ideation, Paranoia, Suicidal Ideation Mental Status Examination - Personal Presentation Personal Presentation: Looks stated age - Affect Affect: Constricted - Motor Activity Motor Activity: Other (very restless) - Reliability in Providing Information Reliability in Providing Information: Fair - Speech Speech: Organized - Mood Mood: Depressed, Anxious - Formal Thought Process Formal Thought Process: No Impairment - Cognitive Functions Attention/Concentration: Attentive Estimate of Intelligence: Average Judgement: Intact, as evidence by: Insight regarding need for hospitalization Memory: Recent intact, as evidence by: Ability to recall events of the day, Remote intact, as evidenced by: Abilit to recall sig. life events - Risk Risk: Diminished functioning - Strength & Assets Inventory Strength & Assets Inventory: Life experience, Cooperative - Limitations Limitations: Living alone DSM 5 DX - DSM 5 DSM 5 Diagnosis: Opioid withdrawal Opioid use d/o- severe Sedative, hypnotic use d/o - moderate Major depressive d/o - recurrent, severe, non-psychotic - Recommended/Plan of Treatment Treatment Recommendations and Plan of Treatment: Methadone detox As needed medications Gabapentin for augmentation started All risks, benefits and alternatives of medications, including no medications, discussed and the patient understood and agreed. Attend groups and activities Supportive therapy and psychoeducation PA for abstinence CBT for relapse prevention Encourage MAT Refer to rehab or IOP Attend self-help groups as well PA for smoking cessation and patch if needed 34 min Projected ELOS: 5-6 days Prognosis: good w treatment - Smoking Cessation Smoking Cessation Initiated: No
--- NOTE | 2017-10-28 14:02 | PCM.BM ---
<Ni Alvarez - Last Filed: 10/28/17 13:59> Treatment Plan Problems - Problems identified on initial assessmt Potential for opioid withdrawal Date Initiated: 10/28/17 Time Initiated: 13:15 Assessment reference: NA Treatment assets and liabiliti Patient Assests: adapts well, cooperative, educated, motivated, ADL independent , physically healthy, negotiates basic needs, good past tx response Patient Liabilities: live alone, poor support system, substance abuse - Milieu Protocol Maintain good personal hygiene: daily Encourage regular showers, daily Remind patient to perform daily oral care, daily Assist patient to perform ADL's, every shift Encourage regular showers, every shift Remind patient to perform daily oral care, every shift Assist patient to perform ADL's Maintain personal safety: daily Educate patient to report safety concerns to staff, daily Monitor environment for contraband/sharps, every shift Educate patient to report safety concerns to staff, every shift Monitor environment for contraband/sharps Medication safety: Monitor for expected outcome, potential side effects: daily, every shift, Assess barriers to learning: daily, every shift, Assess readiness for medication education: daily, every shift <Sheyla Bonner - Last Filed: 10/28/17 19:28> - Diagnosis (1) Opioid use disorder, severe, dependence Status: Acute Interventions: 10/28/17 19:28 * Assess 7x/week regarding severity of withdrawal * Educate regarding risks, benefits, side effects and alternatives of medications * Use Motivational Interviewing for abstinence * Use CBT for relapse prevention * Medication management for withdrawal symptoms * Encourage medication assisted treatment *
[2017-10-28] MEDS: Metoprolol Succinate 25 mg XL Tab PO SCH (17:06)
--- NOTE | 2017-10-29 12:38 | PCM.PYCHPN ---
Psychiatric Progress Note - Psychiatric Progress Note Patient seen today, length of contact: 15 min Patient Chief Complaint: "I am better" Problems Identified/Issues Discussed: The pt is seen, chart reviewed, case discussed with staff. Support given, CBT and OH used briefly No new symptoms reported, improving slowly and needs more time No SEs from medications, risks discussed. After care discussed - not sure about what he wants. High relapse risk discussed Medication Change: Yes (detox changes daily) Medical Record Reviewed: Yes Mental Status Examination - Cognitive Function Orientation: Person, Place, Situation, Time Memory: Intact Attention: WNL Concentration: WNL Association: WNL Fund of Knowledge: WN - Mood Mood: Depressed, Anxious - Affect Affect: Constricted - Speech Speech: Appropriate - Formal Thought Process Formal Thought Process: No Impairment - Suicidal Ideation Suicidal Ideation: No - Homicidal Ideation Homicidal Ideation: No Goal/Treatment Plan - Goal/Treatment Plan Need for Continued Stay: Discharge may exacerbated symptoms, Severe functional impairment Progress Toward Problem(s) and Goals/Treatment Plan: Methadone detox As needed medications Gabapentin for augmentation started All risks, benefits and alternatives of medications, including no medications, discussed and the patient understood and agreed. Attend groups and activities Supportive therapy and psychoeducation OH for abstinence CBT for relapse prevention Encourage MAT Refer to rehab or IOP Attend self-help groups as well OH for smoking cessation and patch if needed
[2017-10-29] MEDS: Metoprolol Succinate 25 mg XL Tab PO SCH (17:15)
[2017-10-30] MEDS: Metoprolol Succinate 25 mg XL Tab PO SCH (17:17)
--- NOTE | 2017-10-30 17:35 | PCM.PYCHPN ---
Psychiatric Progress Note - Psychiatric Progress Note Patient seen today, length of contact: 15 min Patient Chief Complaint: "OK" Problems Identified/Issues Discussed: The pt is seen, chart reviewed, case discussed with staff. The pt is compliant with medications and reports no side-effects. Symptoms are improving but needs more time to stabilize. After care discussed, support and psychoeducation given. Medication Change: Yes (detox changes daily) Medical Record Reviewed: Yes Mental Status Examination - Cognitive Function Orientation: Person, Place, Situation, Time Memory: Intact Attention: WNL Concentration: WNL Association: WNL Fund of Knowledge: WNL - Mood Mood: Depressed, Anxious - Affect Affect: Constricted - Speech Speech: Appropriate - Formal Thought Process Formal Thought Process: No Impairment - Suicidal Ideation Suicidal Ideation: No - Homicidal Ideation Homicidal Ideation: No Goal/Treatment Plan - Goal/Treatment Plan Need for Continued Stay: Discharge may exacerbated symptoms, Severe functional impairment Progress Toward Problem(s) and Goals/Treatment Plan: Methadone detox As needed medications Gabapentin for augmentation started All risks, benefits and alternatives of medications, including no medications, discussed and the patient understood and agreed. Attend groups and activities Supportive therapy and psychoeducation MO for abstinence CBT for relapse prevention Encourage MAT Refer to rehab or IOP Attend self-help groups as well MO for smoking cessation and patch if needed
[2017-10-31 15:36] VITALS: RESP 18
[2017-10-31] MEDS: Metoprolol Succinate 25 mg XL Tab PO SCH (17:17)
--- NOTE | 2017-10-31 21:50 | PCM.PYCHPN ---
Psychiatric Progress Note - Psychiatric Progress Note Patient seen today, length of contact: 15 min Patient Chief Complaint: When am I being discharged? Problems Identified/Issues Discussed: PT SEEN ANS EXAMINED DISCUSSED WITH STAFF. GI COMPLAINTS PAWS AFTERCARE Medical Problems: NOTHING ACUTE Diagnostic Results: REVIEWED DSM 5 Symptoms Update: DIARRHEA SOME ANXIETY Medication Change: Yes (detox changes daily) Medical Record Reviewed: Yes Mental Status Examination - Cognitive Function Orientation: Person, Place, Situation Memory: Intact Attention: WNL Concentration: WNL Fund of Knowledge: WNL - Mood Mood: Depressed, Anxious - Affect Affect: Constricted - Speech Speech: Appropriate - Formal Thought Process Formal Thought Process: No Impairment - Homicidal Ideation Homicidal Ideation: No Goal/Treatment Plan - Goal/Treatment Plan Need for Continued Stay: Discharge may exacerbated symptoms, Severe functional impairment Progress Toward Problem(s) and Goals/Treatment Plan: OPIATE WITHDRAWAL METHADONE OPIATE USE DISORDER CBT [place] GROUP [facility]ER[facility] INDIVIDUAL SUPPORTIVE PSYCHOTHERAPY SEDATIVE HYPNOTIC USE DISORDER [place] CBT MAJOR VDEPRESSIVE DISORDER MODERATE INDIVIDUAL PSUCHOTHERAPYGROUP [facility] RECREATIONAL THERAPY SUPPORTIVE PSYCHOTHERAPY Estimated Date of D/C: 11/02/17 - Smoking Cessation Smoking Cessation Initiated: Yes
--- NOTE | 2017-11-01 14:35 | PCM.PYCHPN ---
Psychiatric Progress Note - Psychiatric Progress Note Patient seen today, length of contact: 17 min Patient Chief Complaint: "I'm feeling good" Problems Identified/Issues Discussed: The pt is seen, chart reviewed, case discussed with staff. Support given, CBT and ME used briefly No new symptoms reported, improving slowly and needs more time No SEs from medications, risks discussed. After care discussed Patient appears to be doing better, and is hoping to stay on track when he leaves detox Medication Change: Yes (Detox changes daily) Medical Record Reviewed: Yes Mental Status Examination - Cognitive Function Orientation: Person, Place, Situation, Time Memory: Intact Attention: WNL Concentration: WNL Association: [facility] Fund of Knowledge: WN - Mood Mood: Depressed, Anxious - Affect Affect: Constricted - Speech Speech: Appropriate - Formal Thought Process Formal Thought Process: No Impairment - Suicidal Ideation Suicidal Ideation: No - Homicidal Ideation Homicidal Ideation: No Goal/Treatment Plan - Goal/Treatment Plan Need for Continued Stay: Discharge may exacerbated symptoms, Severe functional impairment Progress Toward Problem(s) and Goals/Treatment Plan: Methadone detox As needed medications Gabapentin for augmentation started All risks, benefits and alternatives of medications, including no medications, discussed and the patient understood and agreed. Attend groups and activities Supportive therapy and psychoeducation ME for abstinence CBT for relapse prevention Encourage MAT Refer to rehab or IOP Attend self-help groups as well ME for smoking cessation and patch if needed Estimated Date of D/C: 11/02/17
[2017-11-01] MEDS: Metoprolol Succinate 25 mg XL Tab PO SCH (17:11)
--- NOTE | 2017-11-02 08:54 | PCM.PYCHDC ---
Mental Status Examination - Mental Status Examination Orientation: Person, Place, Situation, Time Memory: Intact Mood: Anxious Affect: Broad Speech: Appropriate Attention: WNL Concentration: WNL Association: WNL Fund of Knowledge: WNL Formal Thought Process: No Impairment Suicidal Ideation: No Current Homicidal Ideation?: No Discharge Summary - Discharge Note Reason for Hospitalization: Opiate Detox Consultations:: List each consultation separately and include: 1. Reason for request. 2. Findings. 3. Follow-up Summary of Hospital Course include:: 1. Description of specific treatment plan utilized for patients during their course of treatmen. 2. Summarize the time- course for resolution of acute symptoms and/or regressed behaviors. 3. Describe issues identified and worked on during hospitalization. 4. Describe medication utilized. 5. Describe medical problems identified and treated. 6. Reassessment of suicide risk Summary of Hospital Course: On Admission: Pt is a 52 year old male with a PMH of depression, opioid and cannabis use disorders, HTN, COPD, arrythmia, disc hernia and chronic pain of the back and shoulder. He is single, does not have children and lives with his sister in [place]. He has not worked since 2005 and collects disability due to shoulder injury he sustained while working at [employer] in the past. He again states that much of his depression stems from the deaths of his mother and two brothers from lung cancer. He says he is depressed but not suicidal. He admits to claiming to be suicidal to get into hospital. He uses heroin occaisonally but also takes Oxycontin 80 mg 4 times a day. He also takes 1-2 Xanax 2 mg tab, and smokes MJ but denies all others. He is currently in withdrawal, meds started even in ER. Past psych hx: He has a history of several psychiatric admissions. He has a brief history of follow up with a psychiatrist at [place]. He has been non- compliant for the most part. He has used opioids for the past 15-20 years. He was in detox in 2008 at [facility] but has never been to rehab or NA. His longest period of sobriety was 1 -1.5 years. He has used Suboxone in the past which helped him to abstain. Family psych hx: He reports a history of substance use disorder (unspecified) in his cousins.. Medical hx: HTN,, COPD, hx of arrythmias and disc hernia and some "pain." Hospital Course: The pt was admitted and started on treatment with psychotherapy, support, psychoeducation and medications. MD and CBT used. The pt attended groups and activities, as well as milieu therapy. All the risks and benefits of medications are discussed and the patient understood and agreed. The pt improved with the treatments provided. After care discussed with the patient. He will go to [facility] for outpatient care and Suboxone tx with Dr Camacho - Final Diagnosis (DSM 5) Condition upon Discharge: IMPROVED DSM 5: Opioid withdrawal Opioid use d/o- severe Sedative, hypnotic use d/o - moderate Major depressive d/o - recurrent, severe, non-psychotic Disposition: HOME/ ROUTINE Follow-up Treatment Plan: Continue below medications after discharge. Follow after care plan as discussed. Use relapse prevention skills Return to ER or call 911 if suicidal, homicidal or symptoms relapse. Stay away from stress, alcohol and drugs. See primary doctor regularly and get labs. Prescriptions/Medication Reconciliation: Gabapentin [Neurontin] 400 mg PO TID #30 cap Metoprolol Succinate [Toprol XL] 25 mg PO QPM #30 tab traZODone [Desyrel] 100 mg PO HS #30 tab - Smoking Cessation Smoking Cessation Medication prescribed: No
[2017-11-02 09:22] VITALS: BP 111/74; PULSE 58; TEMP 97.8; O2SAT 97
== END 2017-11-02 12:15 | disposition home or self-care (01) | DRG 744 ==
LOC: C.ER 08:33 → C.7D 12:38
PROVIDERS: ADMIT Psychiatry & Neurology Psychiatry; ATTEND Psychiatry & Neurology Psychiatry
PROC: HZ2ZZZZ Detoxification Services for Substance Abuse Treatment (ICD-10-PCS; principal; 2017-10-28)
PROC: HZ52ZZZ Individual Psychotherapy for Substance Abuse Treatment, Cognitive-Behavioral (ICD-10-PCS; 2017-10-28)
PROC: HZ59ZZZ Individual Psychotherapy for Substance Abuse Treatment, Supportive (ICD-10-PCS; 2017-10-28)
PROC: HZ56ZZZ Individual Psychotherapy for Substance Abuse Treatment, Psychoeducation (ICD-10-PCS; 2017-10-28)
PROC: HZ42ZZZ Group Counseling for Substance Abuse Treatment, Cognitive-Behavioral (ICD-10-PCS; 2017-10-28)
PROC: HZ46ZZZ Group Counseling for Substance Abuse Treatment, Psychoeducation (ICD-10-PCS; 2017-10-28)
PROC: GZHZZZZ Group Psychotherapy (ICD-10-PCS; 2017-10-28)
PROC: GZ58ZZZ Individual Psychotherapy, Cognitive-Behavioral (ICD-10-PCS; 2017-10-28)
PROC: GZ56ZZZ Individual Psychotherapy, Supportive (ICD-10-PCS; 2017-10-28)
DX: F11.23 Opioid dependence with withdrawal (principal); F20.9 Schizophrenia, unspecified; J44.9 Chronic obstructive pulmonary disease, unspecified; F12.90 Cannabis use, unspecified, uncomplicated; F33.2 Major depressive disorder, recurrent severe without psychotic features; F13.10 Sedative, hypnotic or anxiolytic abuse, uncomplicated; I10 Essential (primary) hypertension; Z91.19 Patient's noncompliance with other medical treatment and regimen; Z80.1 Family history of malignant neoplasm of trachea, bronchus and lung; F41.9 Anxiety disorder, unspecified; Z87.891 Personal history of nicotine dependence; M51.26 Other intervertebral disc displacement, lumbar region

== ENCOUNTER 2018-01-18 21:29 | Inpatient (IN) | payer MEDICAID ==
[2018-01-18 21:30] VITALS: BMI 56.9
--- NOTE | 2018-01-18 21:36 | C.PDOC ---
History Of Present Illness 53 year old male presents to the ER as a transfer for psych admission. Patient was medically cleared and accepted for admission [employer]. Denies any complaints at this time. Time Seen by Provider: 01/18/18 21:31 Chief Complaint (Nursing): Psychiatric Evaluation History Per: Patient History/Exam Limitations: no limitations Onset/Duration Of Symptoms: Hrs Current Symptoms Are (Timing): Still Present Suicide/Self Injury Attempted (Context): None Associated Symptoms: denies: Depression, Suicidal Thoughts Involuntary Hold By: None Recent travel outside of the [place]: No Past Medical History Reviewed: Historical Data, Nursing Documentation, Vital Signs Vital Signs: Last Vital Signs Temp 98 F 01/18/18 21:35 Pulse 68 01/18/18 21:53 Resp 18 01/18/18 21:53 BP 150/94 H 01/18/18 21:53 Pulse Ox 98 01/18/18 21:53 - Medical History PMH: Anxiety, Arthritis, Back Problems, Bipolar Disorder, COPD, Depression, Gastritis, HTN, Schizophrenia Surgical History: Back Surgery, Hernia Repair - [facility] Procedures DETOXIFICATION SERVICES FOR SUBSTANCE ABUSE TREATMENT (10/28/17) GROUP CLEAR COAT SPRAYER FOR SUBSTANCE ABUSE TREATMENT, PSYCHOEDUCATION (10/28/17) GROUP CLEAR COAT SPRAYER FOR SUBSTANCE ABUSE, COGNITIVE BEHAVIORAL (10/28/17) GROUP PSYCHOTHERAPY (12/11/17) INDIV PSYCHOTHERAPY FOR SUBSTANCE ABUSE TREATMENT, SUPPORT (10/28/17) INDIV PSYCHOTHERAPY FOR SUBSTANCE ABUSE, COGNITIV BEHAVIORAL (12/11/17) INDIV PSYCHOTHERAPY FOR SUBSTANCE ABUSE, MOTIVATION ENHANCE (09/21/17) INDIV PSYCHOTHERAPY FOR SUBSTANCE ABUSE, PSYCHOEDUCATION (10/28/17) INDIVIDUAL PSYCHOTHERAPY, BEHAVIORAL (08/22/17) INDIVIDUAL PSYCHOTHERAPY, COGNITIVE-BEHAVIORAL (12/11/17) INDIVIDUAL PSYCHOTHERAPY, SUPPORTIVE (11/26/17) MEDICATION MANAGEMENT (11/26/17) MEDS MGMT FOR SUBSTANCE ABUSE TREATMENT, METHADONE MAINT (12/10/16) PHARMACOTHERAPY FOR SUBSTANCE ABUSE, METHADONE MAINT (05/08/17) Family History: States: Unknown Family Hx - Social History Hx Tobacco Use: Yes Hx Alcohol Use: Yes Hx Substance Use: Yes - Immunization History Hx Tetanus Toxoid Vaccination: No Hx Influenza Vaccination: Yes Hx Pneumococcal Vaccination: Yes Review Of Systems Constitutional: Negative for: Fever, Chills Cardiovascular: Negative for: Chest Pain, Palpitations Respiratory: Negative for: Cough, Shortness of Breath Gastrointestinal: Negative for: Nausea, Vomiting, Abdominal Pain Neurological: Negative for: Weakness, Numbness Physical Exam - Physical Exam Appears: Non-toxic, No Acute Distress Skin: Normal Color, Warm, Dry Head: Atraumatic, Normacephalic Eye(s): bilateral: Normal Inspection Oral Mucosa: Moist Chest: Symmetrical, No Tenderness Cardiovascular: Rhythm Regular Respiratory: Normal Breath Sounds, No Rales, No Rhonchi, No Wheezing Gastrointestinal/Abdominal: Soft, No Tenderness Back: No CVA Tenderness Extremity: Normal ROM (x4) Neurological/Psych: Oriented x3, Normal Speech Gait: Steady Disposition - Disposition Disposition: HOSPITALIZED Disposition Time: 11:00 Condition: STABLE - Clinical Impression Clinical Impression: Depression - Scribe Statement The provider has reviewed the documentation as recorded by the Scribe Octavio Nunez All medical record entries made by the Scribe were at my direction and personally dictated by me. I have reviewed the chart and agree that the record accurately reflects my personal performance of the history, physical exam, medical decision making, and the department course for this patient. I have also personally directed, reviewed, and agree with the discharge instructions and disposition. Decision To Admit - Pt Status Changed To: Hospital Disposition Of: Inpatient - Admit Certification Admit to Inpatient:: After my assessment, the patient will require hospitalization for at least two midnights. This is because of the severity of symptoms shown, intensity of services needed, and/or the medical risk in this patient being treated as an outpatient. - InPatient: Physician Admission Certification: I certify that this patient requires 2 or more midnights of care for the following reason:: needs inpt pysch - . Bed Request Type: Psychiatry Admitting Physician: Pollo Camacho Patient Diagnosis: Depression
--- NOTE | 2018-01-18 22:07 | PCM.BM ---
<Ami Brasher - Last Filed: 01/18/18 22:06> Treatment Plan Problems - Problems identified on initial assessmt Depression Date Initiated: 01/18/18 Time Initiated: 22:06 Assessment reference: NA Status: Active Substance Abuse Date Initiated: 01/18/18 Time Initiated: 22:07 Assessment reference: NA Status: Active Treatment assets and liabiliti Patient Assests: adapts well, cooperative, resourceful, ADL independent, negotiates basic needs, cognitively intact Patient Liabilities: substance abuse, medical problems - Milieu Protocol Maintain good personal hygiene: daily Encourage regular showers, daily Remind patient to perform daily oral care, daily Assist patient to perform ADL's Maintain personal safety: every shift Educate patient to report safety concerns to staff, every shift Monitor environment for contraband/sharps Medication safety: Monitor for expected outcome, potential side effects: every shift, Assess barriers to learning: every shift, Assess readiness for medication education: every shift <Miriam Spencer - Last Filed: 01/19/18 15:41> Family Contact Family involvement: Patient does not wish Family/SO involvement Family contact: Patient declines to allow family contact at present - Goals for Treatment Patient goals for treatment: "I do not know where I want to go for treatment at this time." Discharge/Continuing Care - Education Needs Education Needs: Patient Medication, Patient Diagnosis/Disease Process, Patient Coping Skills, Patient Placement options, Patient Community resources - Discharge Discharge Criteria: Free of Suicidal thoughts, Ability to care for self, No longer exhibiting s/s of withdrawal, Reduction of target symptoms Discharge to:: Home - Treatment Team Participation Discussed with Family/SO: No Was Patient/Family/SO present at Treatment Team Meeting: Yes <Pollo Camacho - Last Filed: 01/21/18 19:42> - Diagnosis (1) Major depressive disorder, recurrent, severe with psychotic features Status: Acute Interventions: 01/21/18 19:41 * Assess/adjust medications daily and /or as needed * See patient on an individual basis 7x/week to assess symptoms of depression * Monitor for side effects & effectiveness of medications (2) Cannabis use disorder, severe, dependence Status: Acute Interventions: 01/21/18 19:41 * Assess 7x/week regarding severity of withdrawal * Educate regarding risks, benefits, side effects and alternatives of medications * Use Motivational Interviewing for abstinence * Use CBT for relapse prevention * Medication management for withdrawal symptoms * Encourage medication assisted treatment (3) Opioid use disorder, severe, dependence Status: Acute Interventions: 01/21/18 19:42 * Assess 7x/week regarding severity of withdrawal * Educate regarding risks, benefits, side effects and alternatives of medications * Use Motivational Interviewing for abstinence * Use CBT for relapse prevention * Medication management for withdrawal symptoms * Encourage medication assisted treatment (4) Sedative, hypnotic or anxiolytic use disorder, moderate, in controlled environment Status: Acute Interventions: 01/21/18 19:42 * Assess 7x/week regarding severity of withdrawal * Educate regarding risks, benefits, side effects and alternatives of medications * Use Motivational Interviewing for abstinence * Use CBT for relapse prevention * Medication management for withdrawal symptoms * Encourage medication assisted treatment (5) Moderate sedative, hypnotic, or anxiolytic use disorder Status: Acute Interventions: 01/21/18 19:42 * Assess 7x/week regarding severity of withdrawal * Educate regarding risks, benefits, side effects and alternatives of medications * Use Motivational Interviewing for abstinence * Use CBT for relapse prevention * Medication management for withdrawal symptoms * Encourage medication assisted treatment
[2018-01-18] MEDS ORDERED: Aluminum Hydroxide/Magnesium Hydroxide Susp (30 mL) PO PRN (22:41)
[2018-01-19] MEDS: Metoprolol Succinate 25 mg XL Tab PO SCH (08:28)
--- NOTE | 2018-01-19 23:27 | PCM.PSYCH ---
Initial Psychiatric Evaluation - Initial Psychiatric Evaluation Type of Admission: Voluntary Legal Status: Capacity Chief Complaint (in patient's own words): I'm here for the treatment of depression and substance use. History of Present Illness and Precipitating Events: Patient is a 53 years old, single, unemployed, on disability, male with history of depression, noncompliant with treatment also history of substance use was admitted due to worsening of depression and withdrawing from substance use. Patient with history of depression for last 2 and half years after the of his mother but didn't get any follow-up treatment except going to different hospitals at times. Getting treatment from the hospital Hospital after discharge stopped getting treatment. Patient reported that now he is severely depressed with decreased sleep and feeling tired in the morning also decreased appetite and lost about 30 pounds over 20 half years. Also expressed suicidal ideations with plan to jump from [address] story of his apartment building. Still feeling suicidal ideations but also feeling safe in the hospital. Patient reported history of 8 previous suicidal attempts but refused to disclose Alexandra. Also reported crying a lot, hopelessness and helplessness and also feeling guilty. Patient reported hearing voices of his mother and also seeing shadows at times. Denied any manic or anxiety symptoms. History of more than 10 inpatient psychiatric admissions. No visit to any psychiatrist in between admissions. Cannabis: Cannabis is still of choice. Started using cannabis at 10 years of age. Currently he was using 2-3 blunts of cannabis daily. Last used 3 days ago. Heroin: Started 2-1/2 years ago. Currently he was using 5 bags daily, snorting. Last used 3 days ago. Patient also has history of OxyContin use which she started 10 years ago and currently he was taking 80 mg daily. Last use reported 3 days ago. Patient has history of 4 previous detox but no rehabilitation. Xanax: Started one year ago. Using daily, 1 stick. Last used about one week ago. Patient is smoking half pack of cigarettes daily. Refusing to take nicotine patch. Patient was arrested in the past after attempting's suicide by cutting on wrists. Patient was born in [place] and has high school graduation. His last job was in 2013 and currently he is not working. He is on public assistance. Lives with her sister in an apartment. Never and has no children. His height is 5 feet 6 inches and weight is 150 pounds. Patient wants to go to [place] [facility] after discharge from the hospital for follow-up care. Current Medications: Active Medications Generic Name Dose Route Start Last Admin Trade Name Freq PRN Reason Stop Dose Admin Al Hydrox/Mg Hydrox/Simethicone 30 ml 01/18/18 22:41 Maalox 30 Ml PO TID PRN Indigestion / Heartburn Amlodipine Besylate 5 mg 01/19/18 10:00 01/19/18 09:49 Norvasc PO 5 mg DAILY NOAH Administration Clonidine HCl 0.1 mg 01/18/18 22:45 01/19/18 17:55 Catapres PO Not Given BID NOAH Clonidine HCl 0.1 mg 01/18/18 22:41 01/19/18 06:37 Catapres PO 0.1 mg Q6H PRN Administration COWS Score More or Equal to 5 Gabapentin 600 mg 01/19/18 10:00 01/19/18 18:04 Neurontin PO 600 mg TID NOAH Administration Hydroxyzine HCl 50 mg 01/18/18 22:38 01/19/18 22:23 Atarax PO 50 mg Q6H PRN Administration Anxiety Ibuprofen 600 mg 01/18/18 22:38 Motrin Tab PO Q6H PRN Pain, moderate (4-7) Loperamide HCl 2 mg 01/18/18 22:41 Imodium PO Q8 PRN Diarrhea Methadone HCl 10 mg 01/20/18 10:00 Methadone PO 01/23/18 09:59 Q24H NOAH Taper Metoprolol Succinate 25 mg 01/19/18 08:00 01/19/18 08:28 Toprol Xl PO 25 mg BRK NOAH Administration Mirtazapine 30 mg 01/18/18 22:45 01/19/18 22:23 Remeron PO 30 mg HS NOAH Administration Ondansetron HCl 4 mg 01/18/18 22:41 Zofran Tab PO Q8 PRN Nausea/Vomiting Past Psychiatric History - Past Psychiatric History Previous Treatment History: Inpatient History of Abuse: None reported History of ETOH/Drug Use: See HPI History of Family Illness: None reported Pertinent Medical Hx (Current Medical&Sleep Prob, Allergies): Allergies Allergy/AdvReac Type Severity Reaction Status Date / Time mayonnaise Allergy SHORTNESS Uncoded 01/18/18 21:34 OF BREATH Gabapentin [Neurontin] 600 mg PO TID #45 tab 01/02/18 Lidocaine 5% [Lidoderm] 1 ea TD DAILY patch 01/02/18 Metoprolol Succinate XL [Toprol XL] 25 mg PO BRK #7 tab 01/02/18 Mirtazapine [Remeron] 30 mg PO HS #14 tab 01/02/18 amLODIPine [Norvasc] 5 mg PO DAILY #7 tab 01/02/18 buPROPion XL [Wellbutrin XL] 300 mg PO DAILY #14 t24 01/02/18 cloNIDine [Catapres] 0.1 mg PO BID #14 tab 01/02/18 Hypertension COPD History of arrhythmias Review of Systems - Psychiatric Psychiatric: As Per HPI, Depression, Hopelessness Mental Status Examination - Personal Presentation Personal Presentation: Looks stated age - Affect Affect: Depressed - Motor Activity Motor Activity: Calm - Reliability in Providing Information Reliability in Providing Information: Fair - Speech Speech: Organized - Mood Mood: Depressed - Formal Thought Process Formal Thought Process: No Impairment - Hallucinations/Delusions Hallucinations: Other (None reported at the time of evaluation) Delusions: Other - Obsessions/Compulsions Obsessions: None Compulsions: None - Cognitive Functions Orientation: Person, Place, Situation, Time Sensorium: Alert Attention/Concentration: Attentive Abstract Thinking: [place] Estimate of Intelligence: Average Judgement: Intact, as evidence by: Insight regarding need for hospitalization Memory: Recent intact, as evidence by: Ability to recall events of the day, Remote intact, as evidenced by: Ability to recall historical events - Risk Risk: Withdrawal, Diminished functioning - Strength & Assets Inventory Strength & Assets Inventory: Family support, Cooperative - Limitations Limitations: Other DSM 5 DX - DSM 5 DSM 5 Diagnosis: Major depressive disorder recurrent severe with psychotic features. Cannabis use disorder severe. Opiate use disorder severe. Anxiolytics use disorder moderate. - Recommended/Plan of Treatment Treatment Recommendations and Plan of Treatment: Patient education. Supportive therapy. CBT for relapse prevention. MRI for abstinence. We will start methadone taper for opiate withdrawal symptoms. Other when necessary medications. Medication for depression and psychosis. [facility] after discharge from the hospital. Projected ELOS: 8-10 days - Smoking Cessation Smoking Cessation Initiated: Yes
[2018-01-20] MEDS: Metoprolol Succinate 25 mg XL Tab PO SCH (08:16)
--- NOTE | 2018-01-20 23:21 | PCM.PYCHPN ---
Psychiatric Progress Note - Psychiatric Progress Note Patient seen today, length of contact: 15 minutes Patient Chief Complaint: I'm feeling little better. Problems Identified/Issues Discussed: Patient seen, chart reviewed, case discussed with the staff. Issues related to illness and treatment were discussed with the patient and staff. Reported compliant with treatment with no adverse affects. Tolerating treatment very well. Patient reported feeling little better. Calm and cooperative with good eye contact. Aftercare discussed with the patient. Staff reported still some behavioral disturbances. Awake alert oriented 3, no auditory or visual hallucination, nose suicidal ideation or homicidal ideation at time of evaluation. Medical Problems: Hypertension COPD History of arrhythmias Diagnostic Results: Reviewed DSM 5 Symptoms Update: Some improvement with treatment Medication Change: No Medical Record Reviewed: Yes Mental Status Examination - Cognitive Function Orientation: Person, Place, Situation, Time Memory: Intact Attention: WNL Concentration: WNL Association: WNL Fund of Knowledge: WN Decription of patient's judgement and insights: Fair - Mood Mood: Depressed - Affect Affect: Depressed - Speech Speech: Appropriate - Formal Thought Process Formal Thought Process: No Impairment Psychotic Thoughts and Behaviors: None - Suicidal Ideation Suicidal Ideation: No - Homicidal Ideation Homicidal Ideation: No Goal/Treatment Plan - Goal/Treatment Plan Need for Continued Stay: Remain at risks for inpatient hospitalization, Discharge may exacerbated symptoms, Severe functional impairment Progress Toward Problem(s) and Goals/Treatment Plan: Patient education. Supportive therapy. CBT for relapse prevention. MRI for abstinence. [facility] after discharge from the hospital. Estimated Date of D/C: 01/25/18 - Smoking Cessation Smoking Cessation Initiated: No
[2018-01-21] MEDS: Metoprolol Succinate 25 mg XL Tab PO SCH (08:28)
[2018-01-21] MEDS ORDERED: Pneumococcal 23-Valent Vaccine IM ONE (10:00)
--- NOTE | 2018-01-21 19:47 | PCM.PYCHPN ---
Psychiatric Progress Note - Psychiatric Progress Note Patient seen today, length of contact: 15 minutes Patient Chief Complaint: I'm feeling better. Problems Identified/Issues Discussed: Patient seen, chart reviewed, case discussed with the staff. Issues related to illness and treatment were discussed with the patient and staff. Reported compliant with treatment with no adverse affects. Tolerating treatment very well. Patient reported feeling better. Calm and cooperative with good eye contact. Aftercare discussed with the patient. Staff reported no behavioral disturbances. Awake alert oriented 3, no auditory or visual hallucination, nose suicidal ideation or homicidal ideation at time of evaluation. Medical Problems: Hypertension COPD History of arrhythmias Diagnostic Results: Reviewed DSM 5 Symptoms Update: Improving with treatment Medication Change: No Medical Record Reviewed: Yes Mental Status Examination - Cognitive Function Orientation: Person, Place, Situation, Time Memory: Intact Attention: WNL Concentration: WNL Association: WNL Fund of Knowledge: [facility] Decription of patient's judgement and insights: Fair - Mood Mood: Depressed (Much less than before) - Affect Affect: Other (Appropriate) - Speech Speech: Appropriate - Formal Thought Process Formal Thought Process: No Impairment Psychotic Thoughts and Behaviors: None - Suicidal Ideation Suicidal Ideation: No - Homicidal Ideation Homicidal Ideation: No Goal/Treatment Plan - Goal/Treatment Plan Need for Continued Stay: Remain at risks for inpatient hospitalization, Discharge may exacerbated symptoms, Severe functional impairment Progress Toward Problem(s) and Goals/Treatment Plan: Patient education. Supportive therapy. CBT for relapse prevention. MRI for abstinence. Continue treatment as before. [facility] after discharge from the hospital. Estimated Date of D/C: 01/25/18 - Smoking Cessation Smoking Cessation Initiated: No
[2018-01-22] MEDS: Metoprolol Succinate 25 mg XL Tab PO SCH (09:09)
--- NOTE | 2018-01-22 13:41 | PCM.PYCHPN ---
Psychiatric Progress Note - Psychiatric Progress Note Patient seen today, length of contact: 15 minutes Patient Chief Complaint: "Down" Problems Identified/Issues Discussed: The pt is seen, chart reviewed, case discussed with staff. Support and psychoeducation given, CBT and NH used briefly No new symptoms reported, improving slowly and needs more time No SEs from medications, risks discussed. After care discussed Medication Change: No Medical Record Reviewed: Yes Mental Status Examination - Cognitive Function Orientation: Person, Place, Situation, Time Memory: Intact Attention: WNL Concentration: WNL Association: WN Fund of Knowledge: WN - Mood Mood: Depressed (Much less than before) - Affect Affect: Other (Appropriate) - Speech Speech: Appropriate - Formal Thought Process Formal Thought Process: No Impairment - Suicidal Ideation Suicidal Ideation: No - Homicidal Ideation Homicidal Ideation: No Goal/Treatment Plan - Goal/Treatment Plan Need for Continued Stay: Severe depression anxiety, Discharge may exacerbated symptoms, Severe functional impairment Progress Toward Problem(s) and Goals/Treatment Plan: Continue medications Support and psychoeducation daily Attend groups and activities daily After care planning by PRIMITIVO Estimated Date of D/C: 01/25/18
[2018-01-23] MEDS: Metoprolol Succinate 25 mg XL Tab PO SCH (09:27)
--- NOTE | 2018-01-23 21:54 | PCM.PYCHPN ---
Psychiatric Progress Note - Psychiatric Progress Note Patient seen today, length of contact: 15 minutes Patient Chief Complaint: "Still depressed" Problems Identified/Issues Discussed: The pt is seen, chart reviewed, case discussed with staff. Support and psychoeducation given, CBT and NV used briefly Coping with depression discussed Taper ended No SEs from medications, risks discussed. After care discussed Medication Change: Yes (detox ended) Medical Record Reviewed: Yes Mental Status Examination - Cognitive Function Orientation: Person, Place, Situation, Time Memory: Intact Attention: WNL Concentration: WNL Association: WN Fund of Knowledge: WN - Mood Mood: Depressed (Much less than before) - Affect Affect: Other (Appropriate) - Speech Speech: Appropriate - Formal Thought Process Formal Thought Process: No Impairment - Suicidal Ideation Suicidal Ideation: No - Homicidal Ideation Homicidal Ideation: No Goal/Treatment Plan - Goal/Treatment Plan Need for Continued Stay: Severe depression anxiety, Discharge may exacerbated symptoms, Severe functional impairment Progress Toward Problem(s) and Goals/Treatment Plan: Continue medications Support and psychoeducation daily Attend groups and activities daily After care planning by PRIMITIVO Estimated Date of D/C: 01/25/18
[2018-01-24 06:28] VITALS: TEMP 97.6; O2SAT 98
[2018-01-24] MEDS: Metoprolol Succinate 25 mg XL Tab PO SCH (08:06)
[2018-01-24 09:14] VITALS: RESP 17
--- NOTE | 2018-01-24 15:58 | PCM.PYCHPN ---
Psychiatric Progress Note - Psychiatric Progress Note Patient seen today, length of contact: 15 minutes Patient Chief Complaint: " I am still depressed" Problems Identified/Issues Discussed: The patient is seen chart discussed and reviewed with the nurse. The patient states that he still feels depressed and is still suicidal. He states that prior to coming to the hospital his plan was to jump off the top floor of his apartment building and he still has that plan. The patient has trouble sleeping and states that he sleeps only 1 hr a night. Coping with depression was discussed. Medication Change: Yes (detox ended) Medical Record Reviewed: Yes Mental Status Examination - Cognitive Function Orientation: Person, Place, Situation, Time Memory: Intact Attention: WNL Concentration: WNL Association: WN Fund of Knowledge: WNL - Mood Mood: Depressed (Much less than before) - Affect Affect: Flat, Other (Appropriate) - Speech Speech: Appropriate - Formal Thought Process Formal Thought Process: No Impairment - Suicidal Ideation Suicidal Ideation: Yes - Homicidal Ideation Homicidal Ideation: No Goal/Treatment Plan - Goal/Treatment Plan Need for Continued Stay: Severe depression anxiety, Discharge may exacerbated symptoms, Severe functional impairment Progress Toward Problem(s) and Goals/Treatment Plan: The pt is seen, chart reviewed, case discussed with staff. Taper done Neurontin 600 mg PO TID Atarax 50 mg PO Q6 PRN Mirtazapine 30 mg Support and psychoeducation given, CBT and WI used briefly No new symptoms reported, improving slowly and needs more time No SEs from medications, risks discussed. After care discussed Estimated Date of D/C: 01/25/18
[2018-01-25] MEDS: Metoprolol Succinate 25 mg XL Tab PO SCH (07:53)
[2018-01-25 09:37] VITALS: BP 120/84; PULSE 83
--- NOTE | 2018-01-25 09:44 | PCM.PYCHDC ---
Mental Status Examination - Mental Status Examination Orientation: Person, Place, Situation, Time Memory: Intact Mood: Neutral Affect: Constricted Speech: Soft Attention: WNL Concentration: WNL Association: WNL Fund of Knowledge: WNL Formal Thought Process: No Impairment Description of patient's judgement and insight: good, fair Psychotic Thoughts and Behaviors: denies any AVH Suicidal Ideation: No Current Homicidal Ideation?: No Discharge Summary - Discharge Note Reason for Hospitalization: Patient is a 53 years old, single, unemployed, on disability, male with history of depression, noncompliant with treatment also history of substance use was admitted due to worsening of depression and withdrawing from substance use. Patient with history of depression for last 2 and half years after the of his mother but didn't get any follow-up treatment except going to different hospitals at times. Getting treatment from the hospital Hospital after discharge stopped getting treatment. Patient reported that now he is severely depressed with decreased sleep and feeling tired in the morning also decreased appetite and lost about 30 pounds over 20 half years. Also expressed suicidal ideations with plan to jump from [address]th story of his apartment building. Still feeling suicidal ideations but also feeling safe in the hospital. Patient reported history of 8 previous suicidal attempts but refused to disclose Alexandra. Also reported crying a lot, hopelessness and helplessness and also feeling guilty. Patient reported hearing voices of his mother and also seeing shadows at times. Denied any manic or anxiety symptoms. History of more than 10 inpatient psychiatric admissions. No visit to any psychiatrist in between admissions. Cannabis: Cannabis is still of choice. Started using cannabis at 10 years of age. Currently he was using 2-3 blunts of cannabis daily. Last used 3 days ago. Heroin: Started 2-1/2 years ago. Currently he was using 5 bags daily, snorting. Last used 3 days ago. Patient also has history of OxyContin use which she started 10 years ago and currently he was taking 80 mg daily. Last use reported 3 days ago. Patient has history of 4 previous detox but no rehabilitation. Xanax: Started one year ago. Using daily, 1 stick. Last used about one week ago. Patient is smoking half pack of cigarettes daily. Refusing to take nicotine patch. Patient was arrested in the past after attempting's suicide by cutting on wrists. Patient was born in [place] and has high school graduation. His last job was in 2013 and currently he is not working. He is on public assistance. Lives with her sister in an apartment. Never and has no children. His height is 5 feet 6 inches and weight is 150 pounds. Consultations:: List each consultation separately and include: 1. Reason for request. 2. Findings. 3. Follow-up Summary of Hospital Course include:: 1. Description of specific treatment plan utilized for patients during their course of treatmen. 2. Summarize the time- course for resolution of acute symptoms and/or regressed behaviors. 3. Describe issues identified and worked on during hospitalization. 4. Describe medication utilized. 5. Describe medical problems identified and treated. 6. Reassessment of suicide risk - Final Diagnosis (DSM 5) Condition upon Discharge: STABLE DSM 5: Major depressive disorder recurrent severe with psychotic features. Cannabis use disorder severe. Opiate use disorder severe. Anxiolytics use disorder moderate. Disposition: HOME/ ROUTINE Follow-up Treatment Plan: Major depressive disorder recurrent severe with psychotic features. Cannabis use disorder severe. Opiate use disorder severe. Anxiolytics use disorder moderate. Prescriptions/Medication Reconciliation: amLODIPine [Norvasc] 5 mg PO DAILY #30 tab Gabapentin [Neurontin] 600 mg PO TID #90 tab Mirtazapine [Remeron] 30 mg PO HS #30 tab - Smoking Cessation Smoking Cessation Medication prescribed: No - Antipsychotic Medications Pt discharged on 2 or more routine antipsychotic medications: No
== END 2018-01-25 10:38 | disposition home or self-care (01) | DRG 430 ==
LOC: C.ER 21:29 → C.5E 21:33
PROC: GZ3ZZZZ Medication Management (ICD-10-PCS; principal; 2018-01-18)
PROC: HZ2ZZZZ Detoxification Services for Substance Abuse Treatment (ICD-10-PCS; 2018-01-18)
PROC: HZ91ZZZ Pharmacotherapy for Substance Abuse Treatment, Methadone Maintenance (ICD-10-PCS; 2018-01-18)
PROC: GZHZZZZ Group Psychotherapy (ICD-10-PCS; 2018-01-18)
PROC: GZ56ZZZ Individual Psychotherapy, Supportive (ICD-10-PCS; 2018-01-18)
PROC: HZ59ZZZ Individual Psychotherapy for Substance Abuse Treatment, Supportive (ICD-10-PCS; 2018-01-18)
PROC: HZ46ZZZ Group Counseling for Substance Abuse Treatment, Psychoeducation (ICD-10-PCS; 2018-01-18)
DX: F33.3 Major depressive disorder, recurrent, severe with psychotic symptoms (principal); F11.20 Opioid dependence, uncomplicated; F13.20 Sedative, hypnotic or anxiolytic dependence, uncomplicated; J44.9 Chronic obstructive pulmonary disease, unspecified; F12.20 Cannabis dependence, uncomplicated; R45.851 Suicidal ideations; F17.210 Nicotine dependence, cigarettes, uncomplicated; F20.9 Schizophrenia, unspecified; F31.9 Bipolar disorder, unspecified; I10 Essential (primary) hypertension; Z79.899 Other long term (current) drug therapy; Z91.19 Patient's noncompliance with other medical treatment and regimen

== ENCOUNTER 2018-08-20 12:07 | Inpatient (IN) | payer MEDICAID ==
[2018-08-20 12:08] VITALS: BMI 56.9
--- NOTE | 2018-08-20 13:09 | C.PDOC ---
History Of Present Illness Patient presents as a transfer from [place] for suicide attempt. Patient is currently AAOx3, states that he took 10-15 tabs trazodone yesterday around lunch time, was found by his sister and taken to [facility]. He eventually returned to baseline mental status and was medically cleared, transferred here for admission. Patient still reports SI, states he has been depressed since he was 11. Has had multiple other suicide attempts in the past. Denies HI. No visual hallucinations. States that he sometimes hears his mother's voice. Denies any other complaints. Time Seen by Provider: 08/20/18 12:46 Chief Complaint (Nursing): Psychiatric Evaluation History Per: Patient Past Medical History Reviewed: Historical Data, Nursing Documentation, Vital Signs VASHTI Report Viewed: Yes - Medical History PMH: Anxiety, Arthritis, Back Problems, Bipolar Disorder, COPD, Depression, Fractures (left arm fracture), Gastritis, HTN, Schizophrenia Denies: Diabetes, Hepatitis, HIV, Chronic Kidney Disease, Seizures, Sexually Transmitted Disease Surgical History: Back Surgery, Hernia Repair - [facility] (06/11/18) DETOXIFICATION SERVICES FOR SUBSTANCE ABUSE TREATMENT (01/18/18) GROUP PHARMACEUTICAL DETAILER FOR SUBSTANCE ABUSE TREATMENT, PSYCHOEDUCATION (01/18/18) GROUP PHARMACEUTICAL DETAILER FOR SUBSTANCE ABUSE, COGNITIVE BEHAVIORAL (10/28/17) GROUP PSYCHOTHERAPY (07/30/18) INDIV PSYCHOTHERAPY FOR SUBSTANCE ABUSE TREATMENT, SUPPORT (06/11/18) INDIV PSYCHOTHERAPY FOR SUBSTANCE ABUSE, COGNITIV BEHAVIORAL (12/11/17) INDIV PSYCHOTHERAPY FOR SUBSTANCE ABUSE, MOTIVATION ENHANCE (07/30/18) INDIV PSYCHOTHERAPY FOR SUBSTANCE ABUSE, PSYCHOEDUCATION (07/30/18) INDIVIDUAL PSYCHOTHERAPY, BEHAVIORAL (02/19/18) INDIVIDUAL PSYCHOTHERAPY, COGNITIVE-BEHAVIORAL (12/11/17) INDIVIDUAL PSYCHOTHERAPY, SUPPORTIVE (07/30/18) MEDICATION MANAGEMENT (01/18/18) MEDS MGMT FOR SUBSTANCE ABUSE TREATMENT, CLONIDINE (07/30/18) MEDS MGMT FOR SUBSTANCE ABUSE TREATMENT, METHADONE MAINT (12/10/16) PHARMACOTHERAPY FOR SUBSTANCE ABUSE TREATMENT, CLONIDINE (06/11/18) PHARMACOTHERAPY FOR SUBSTANCE ABUSE, METHADONE MAINT (01/18/18) Family History: States: Unknown Family Hx - Social History Hx Tobacco Use: Yes Hx Alcohol Use: Yes (clean x25 years) Hx Substance Use: Yes (heroin 1 bag sniff 2-3 x week) - Immunization History Hx Tetanus Toxoid Vaccination: No Hx Influenza Vaccination: Yes Hx Pneumococcal Vaccination: Yes Review Of Systems Except As Marked, All Systems Reviewed And Found Negative. Constitutional: Negative for: Fever, Chills ENT: Negative for: Nose Discharge Respiratory: Negative for: Cough, Shortness of Breath Gastrointestinal: Negative for: Nausea, Vomiting, Abdominal Pain, Diarrhea Genitourinary: Negative for: Dysuria Neurological: Negative for: Confusion, Altered Mental Status Psych: Positive for: Depression, Suicidal ideation Physical Exam - Physical Exam Appears: Toxic Skin: Normal Color, Warm, Dry Head: Atraumatic Eye(s): bilateral: Normal Inspection, PERRL, EOMI Oral Mucosa: Moist Chest: Symmetrical Cardiovascular: Rhythm Regular Respiratory: Normal Breath Sounds Gastrointestinal/Abdominal: Normal Exam Extremity: Normal ROM Neurological/Psych: Oriented x3, Normal Speech Gait: Steady Medical Decision Making Medical Decision Making: Patient medically cleared from outside institution, sent for admission to Dr. Santamaria for Major Depressive Disporder, Severe. Disposition - Disposition Disposition: HOSPITALIZED Disposition Time: 13:10 Condition: STABLE - Clinical Impression Clinical Impression: Major depressive disorder
--- NOTE | 2018-08-20 14:14 | PCM.BM ---
<Ni Ferminn - Last Filed: 08/20/18 14:13> Treatment Plan Problems - Problems identified on initial assessmt Suicidal Ideation Date Initiated: 08/20/18 Time Initiated: 14:13 Assessment reference: NA Status: Monitor Altered Sleep Pattern Date Initiated: 08/20/18 Time Initiated: 14:13 Assessment reference: NA Status: Active Treatment assets and liabiliti Patient Assests: motivated, self-reliant, ADL independent, good support system (Pt. reports circumstantially supportive relationship with family. Pt. identifies sister as primary support. ), cognitively intact Patient Liabilities: substance abuse - Milieu Protocol Maintain good personal hygiene: daily Encourage regular showers, daily Remind patient to perform daily oral care, daily Assist patient to perform ADL's Conduct patient checks and document Observation sheet: Q15 minutes Maintain personal safety: every shift Educate patient to report safety concerns to staff, every shift Monitor environment for contraband/sharps Medication safety: Monitor for expected outcome, potential side effects: every shift, Assess barriers to learning: every shift, Assess readiness for medication education: every shift <Lindsey Duran - Last Filed: 08/24/18 11:35> Family Contact Family involvement: Famliy/SO not involved - Goals for Treatment Patient goals for treatment: "I need an IOP program." Discharge/Continuing Care - Education Needs Education Needs: Patient Medication, Patient Coping Skills - Discharge Discharge Criteria: Tolerates medication w/o severe side effects, No longer exhibiting s/s of withdrawal, Reduction of target symptoms Discharge to:: Home - Treatment Team Participation Discussed with Family/SO: No Was Patient/Family/SO present at Treatment Team Meeting: Yes
[2018-08-20] MEDS ORDERED: Pneumococcal 23-Valent Vaccine IM ONE (14:59)
[2018-08-20] MEDS ORDERED: Influenza Vaccine 60 mcg/0.5 mL SYR (4YR UP) IM ONE (15:00)
[2018-08-21 06:46] VITALS: RESP 20
--- NOTE | 2018-08-21 10:01 | PCM.PSYCH ---
Initial Psychiatric Evaluation - Initial Psychiatric Evaluation Type of Admission: Voluntary Legal Status: Capacity Chief Complaint (in patient's own words): I was feeling increasingly depressed and suicidal, so I overdosed on trazodone History of Present Illness and Precipitating Events: Patient is a 53 year old male, who was transferred from [facility], with depressed mood and likely suicidal attempt by overdosing on 10 Trazadone pills. Patient reports that he has been feeling increasingly depressed since a couple of weeks because of his mother who almost 2 years ago. He has history of multiple inpatient psychiatric hospitalizations. He was discharged home [facility] almost 2 weeks ago. 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 He also reports smoking marijuana off and on for Arthritis pain. He reports history of suicidal attempt in the past by overdosing on heroin. As per the patient he stopped taking his medications soon after the discharge from the hospital. Yesterday he developed suicidal ideation and he overdosed on trazodone. He reports depressed mood, at times feelings of hopelessness, helplessness and worthlessness. He also reports irritability, agitation and poor sleep. However he denies any auditory or visual hallucinations or any paranoia. Past medical history Hypertension Current Medications: Active Medications Generic Name Dose Route Start Last Admin Trade Name Freq PRN Reason Stop Dose Admin Gabapentin 600 mg 08/20/18 18:00 08/21/18 09:42 Neurontin PO 600 mg TID NOAH Administration Hydroxyzine HCl 25 mg 08/20/18 15:52 08/20/18 21:27 Atarax PO 25 mg Q6 PRN Administration Anxiety Quetiapine Fumarate 50 mg 08/20/18 22:00 08/20/18 21:27 Seroquel PO 50 mg HS PRN Administration Sleep Past Psychiatric History - Past Psychiatric History Previous Treatment History: Inpatient Pertinent Medical Hx (Current Medical&Sleep Prob, Allergies): Allergies Allergy/AdvReac Type Severity Reaction Status Date / Time mayonnaise Allergy SHORTNESS Uncoded 07/30/18 16:44 OF BREATH Gabapentin [Neurontin] 600 mg PO TID 30 Days #90 tab 08/05/18 Metoprolol Tartrate [Lopressor] 25 mg PO Q12 7 Days #14 tab 08/05/18 Mirtazapine [Remeron] 15 mg PO HS 30 Days #30 tab 08/05/18 traZODone [Desyrel] 200 mg PO HS 30 Days #60 tab 08/05/18 Review of Systems - Review of Systems All systems: reviewed and no additional remarkable complaints except - Psychiatric Psychiatric: Anxiety, Hopelessness, Irritability, Suicidal Ideation Mental Status Examination - Personal Presentation Personal Presentation: Looks stated age - Affect Affect: Constricted, Depressed - Motor Activity Motor Activity: Calm - Reliability in Providing Information Reliability in Providing Information: Fair - Speech Speech: Organized - Mood Mood: Depressed, Anxious - Formal Thought Process Formal Thought Process: No Impairment - Obsessions/Compulsions Obsessions: No Compulsions: No - Cognitive Functions Orientation: Person, Place, Situation, Time Sensorium: Alert Attention/Concentration: Attentive Abstract Thinking: [place] Estimate of Intelligence: Below average Judgement: Imparied, as evidence by: Poor judgement, Imparied, as evidence by: Lack of insight into illness - Risk Risk: Suicidal, Diminished functioning - Limitations Limitations: Living alone DSM 5 DX - DSM 5 DSM 5 Diagnosis: Bipolar disorder mixed severe without psychotic features Cannabis use disorder moderate - Recommended/Plan of Treatment Treatment Recommendations and Plan of Treatment: Bipolar disorder mixed severe without psychotic features Cannabis use disorder moderate CBT Psychoeducation Supportive therapy and group therapy milieu therapy Trazodone for insomnia Hydroxyzine for anxiety Neurontin for augmentation Remeron for depression Seroquel for mood
--- NOTE | 2018-08-22 12:49 | PCM.PYCHPN ---
Psychiatric Progress Note - Psychiatric Progress Note Patient seen today, length of contact: 18 min Patient Chief Complaint: "Not well" Problems Identified/Issues Discussed: The pt is seen, chart reviewed, case is discussed with staff. The pt is compliant with medications and reports no side-effects. Symptoms are improving but needs more time to stabilize and to avoid relapse. How he overdosed on Trazodone discussed. Pt attends groups and activities. Support given, psycho-education provided. After care discussed. Medication Change: Yes Medical Record Reviewed: Yes Mental Status Examination - Cognitive Function Orientation: Person, Place, Situation, Time Memory: Intact Attention: Poor Concentration: Poor Association: WNL Fund of Knowledge: WNL - Mood Mood: Depressed, Anxious - Affect Affect: Constricted, Depressed - Speech Speech: Appropriate - Formal Thought Process Formal Thought Process: No Impairment - Suicidal Ideation Suicidal Ideation: No - Homicidal Ideation Homicidal Ideation: No Goal/Treatment Plan - Goal/Treatment Plan Need for Continued Stay: Discharge may exacerbated symptoms, Severe functional impairment Progress Toward Problem(s) and Goals/Treatment Plan: Continue meds Support and psychoed Indiv and group therapies Activities After care by PRIMITIVO
[2018-08-23 06:51] VITALS: TEMP 97.7; O2SAT 97
--- NOTE | 2018-08-23 10:33 | PCM.PYCHPN ---
Psychiatric Progress Note - Psychiatric Progress Note Patient seen today, length of contact: 18 min Patient Chief Complaint: I am feeling depressed.' Problems Identified/Issues Discussed: Patient was seen and evaluated, chart reviewed and discussed the staff. Patient reports depressed mood but reports some improvement in the feelings of hopelessness and helplessness. He still reports issues with sleep and appetite. He is taking medication but denies any side effects He needs to stay longer for further stabilization. Supportive therapy was given Medication Change: Yes Medical Record Reviewed: Yes Mental Status Examination - Cognitive Function Orientation: Person, Place, Situation, Time Memory: Intact Attention: Poor Concentration: Poor Association: WNL Fund of Knowledge: WNL - Mood Mood: Depressed, Anxious - Affect Affect: Constricted, Depressed - Speech Speech: Appropriate - Formal Thought Process Formal Thought Process: No Impairment - Suicidal Ideation Suicidal Ideation: No - Homicidal Ideation Homicidal Ideation: No Goal/Treatment Plan - Goal/Treatment Plan Need for Continued Stay: Discharge may exacerbated symptoms, Severe functional impairment Progress Toward Problem(s) and Goals/Treatment Plan: Bipolar disorder mixed severe without psychotic features Cannabis use disorder moderate CBT Psychoeducation Supportive therapy and group therapy milieu therapy Trazodone for insomnia Hydroxyzine for anxiety Neurontin for augmentation Remeron for depression Seroquel for mood
--- NOTE | 2018-08-24 13:30 | PCM.PYCHPN ---
Psychiatric Progress Note - Psychiatric Progress Note Patient seen today, length of contact: 18 min Patient Chief Complaint: I am feeling depressed.' Problems Identified/Issues Discussed: Patient was seen and evaluated, chart reviewed and discussed the staff. Patient reports some improvement in the depressed mood but reports some improvement in the feelings of hopelessness and helplessness. He still reports issues with sleep and appetite. He is taking medication but denies any side effects He needs to stay longer for further stabilization. Supportive therapy was given Medication Change: Yes Medical Record Reviewed: Yes Mental Status Examination - Cognitive Function Orientation: Person, Place, Situation, Time Memory: Intact Attention: Poor Concentration: Poor Association: WNL Fund of Knowledge: WNL - Mood Mood: Depressed, Anxious - Affect Affect: Constricted, Depressed - Speech Speech: Appropriate - Formal Thought Process Formal Thought Process: No Impairment - Suicidal Ideation Suicidal Ideation: No - Homicidal Ideation Homicidal Ideation: No Goal/Treatment Plan - Goal/Treatment Plan Need for Continued Stay: Discharge may exacerbated symptoms, Severe functional impairment Progress Toward Problem(s) and Goals/Treatment Plan: Bipolar disorder mixed severe without psychotic features Cannabis use disorder moderate CBT Psychoeducation Supportive therapy and group therapy milieu therapy Trazodone for insomnia Hydroxyzine for anxiety Neurontin for augmentation Remeron for depression Seroquel for mood
[2018-08-24 16:21] VITALS: PULSE 75
[2018-08-25 09:38] VITALS: BP 120/78
--- NOTE | 2018-08-25 10:40 | PCM.PYCHDC ---
Mental Status Examination - Mental Status Examination Orientation: Person, Place, Situation, Time Memory: Intact Mood: Neutral Affect: Constricted Speech: Soft Attention: WNL Concentration: WNL Association: WNL Fund of Knowledge: WNL Formal Thought Process: No Impairment Description of patient's judgement and insight: good, fair Psychotic Thoughts and Behaviors: denies any AVH Suicidal Ideation: No Current Homicidal Ideation?: No Discharge Summary - Discharge Note Reason for Hospitalization: Patient is a 53 year old male, who was transferred from [facility], with depressed mood and likely suicidal attempt by overdosing on 10 Trazadone pills. Patient reports that he has been feeling increasingly depressed since a couple of weeks because of his mother who almost 2 years ago. He has history of multiple inpatient psychiatric hospitalizations. He was discharged home [facility] almost 2 weeks ago. 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 He also reports smoking marijuana off and on for Arthritis pain. He reports history of suicidal attempt in the past by overdosing on heroin. As per the patient he stopped taking his medications soon after the discharge from the hospital. Yesterday he developed suicidal ideation and he overdosed on trazodone. He reports depressed mood, at times feelings of hopelessness, helplessness and worthlessness. He also reports irritability, agitation and poor sleep. However he denies any auditory or visual hallucinations or any paranoia. Consultations:: List each consultation separately and include: 1. Reason for request. 2. Findings. 3. Follow-up Summary of Hospital Course include:: 1. Description of specific treatment plan utilized for patients during their course of treatmen. 2. Summarize the time- course for resolution of acute symptoms and/or regressed behaviors. 3. Describe issues identified and worked on during hospitalization. 4. Describe medication utilized. 5. Describe medical problems identified and treated. 6. Reassessment of suicide risk Summary of Hospital Course: During the course of his stay, patient (pt) started progressively improving and no longer remained irritable, depressed, and suicidal. His mood and anxiety were improved and he started attending groups and meetings and started socializing. Patient denied any feelings of hopelessness, helplessness, and worthlessness, denied any problem with the sleep or appetite, denied suicidal ideation or homicidal ideation. Pt denied any auditory or visual hallucinations. He denied any withdrawal symptoms. Pt was treated with medications along with supportive therapy, milieu therapy and group therapy. Some changes were made in his current medications and patient was discharged on following medications. He tolerated these medications very well and denied any side effects. - Final Diagnosis (DSM 5) Condition upon Discharge: STABLE DSM 5: Bipolar disorder mixed severe without psychotic features Cannabis use disorder moderate Disposition: HOME/ ROUTINE Follow-up Treatment Plan: Followup: He was discharged to the [facility] in [place]. Education: Pt was educated and counseled about the risks and benefits of taking and not taking medications. Pt was educated and counseled about the risks of drinking and abusing drugs. Pt was educated and counseled to go to the ER or call 911 if pt develop suicidal ideation or homicidal ideation, worsening of symptoms or severe side effects of the meds. Prescriptions/Medication Reconciliation: Gabapentin [Neurontin] 600 mg PO TID #90 tab Mirtazapine [Remeron] 30 mg PO HS #30 tab QUEtiapine [SEROquel] 100 mg PO HS PRN #30 tab PRN Reason: Sleep - Smoking Cessation Smoking Cessation Medication prescribed: No - Antipsychotic Medications Pt discharged on 2 or more routine antipsychotic medications: No
== END 2018-08-25 13:15 | disposition home or self-care (01) | DRG 430 ==
LOC: C.ER 12:07 → C.5E 13:06
PROVIDERS: ADMIT Psychiatry & Neurology Psychiatry; ATTEND Psychiatry & Neurology Psychiatry
PROC: GZHZZZZ Group Psychotherapy (ICD-10-PCS; principal; 2018-08-20)
PROC: HZ52ZZZ Individual Psychotherapy for Substance Abuse Treatment, Cognitive-Behavioral (ICD-10-PCS; 2018-08-20)
PROC: HZ59ZZZ Individual Psychotherapy for Substance Abuse Treatment, Supportive (ICD-10-PCS; 2018-08-20)
PROC: HZ56ZZZ Individual Psychotherapy for Substance Abuse Treatment, Psychoeducation (ICD-10-PCS; 2018-08-20)
PROC: HZ42ZZZ Group Counseling for Substance Abuse Treatment, Cognitive-Behavioral (ICD-10-PCS; 2018-08-20)
PROC: HZ46ZZZ Group Counseling for Substance Abuse Treatment, Psychoeducation (ICD-10-PCS; 2018-08-20)
PROC: GZ58ZZZ Individual Psychotherapy, Cognitive-Behavioral (ICD-10-PCS; 2018-08-20)
PROC: GZ56ZZZ Individual Psychotherapy, Supportive (ICD-10-PCS; 2018-08-20)
DX: F31.63 Bipolar disorder, current episode mixed, severe, without psychotic features (principal); F11.90 Opioid use, unspecified, uncomplicated; J44.9 Chronic obstructive pulmonary disease, unspecified; R45.851 Suicidal ideations; F12.20 Cannabis dependence, uncomplicated; F20.9 Schizophrenia, unspecified; F41.9 Anxiety disorder, unspecified; G47.00 Insomnia, unspecified; I10 Essential (primary) hypertension; Z91.5 Personal history of self-harm; M19.90 Unspecified osteoarthritis, unspecified site